=== PATIENT | female | born 1960 | race Caucasian/White ===

== ENCOUNTER 2018-11-24 15:31 | Emergency (ER) | payer OTHER ==
[~2018-11-24] VITALS: Ht 152.4 cm; Wt 63.5 kg
[~2018-11-24 15:31] MED LIST: CLON1TAB11 PO; DESV50TA PO; DIVA-53 PO; DOCU-153 PO; FURO40TA4 PO; HYDR25TA PO; LOPE1TAB4 PO; OMEP40CA5 PO; ONDA4TAB10 PO; PRAZ2CAP2 PO; PROP20TA PO
[2018-11-24] MEDS ORDERED: IV NORMAL SALINE 1000ML BAG 1,000 ML IV ONE ×2 (16:00→17:45)
[2018-11-24 16:44] LABS: BASO % 0 % (0-3); EOS # 0.1 x10^3/uL (0.0-0.7); EOS % 1 % (0-3); HEMATOCRIT 35.2 % (36.0-47.0); HEMOGLOBIN 11.3 g/dL (12.0-15.5); LYMPH # 1.8 x10^3/uL (1.0-4.8); LYMPH % 24 % (24-48); MEAN CORPUSCULAR HEMOGLOBIN 28 pg (25-35); MEAN CORPUSCULAR HGB CONC 32 g/dL (31-37); MEAN CORPUSCULAR VOLUME 88 fL (79-100); MONO # 0.6 x10^3/uL (0.0-1.1); MONO % 8 % (0-9); NEUT # 5.2 x10^3uL (1.8-7.7); NEUT % 67 % (31-73); PLATELET COUNT 251 x10^3/uL (140-400); WHITE BLOOD COUNT 7.7 x10^3/uL (4.0-11.0)
[2018-11-24 17:04] LABS: CALCIUM 9.7 mg/dL (8.5-10.1); CREATININE 1.3 mg/dL (0.6-1.0); GFR 41.9; POTASSIUM 3.2 mmol/L (3.5-5.1)
[2018-11-24 17:11] LABS: VAL ACID 4 mcg/mL (50-100)
[2018-11-24 17:16] LABS: ALBUMIN 3.6 g/dL (3.4-5.0); MAGNESIUM 2.1 mg/dL (1.8-2.4); TOTAL BILIRUBIN 0.1 mg/dL (0.2-1.0); TOTAL PROTEIN 7.3 g/dL (6.4-8.2)
[2018-11-24 17:42] LABS: BILIRUBIN,URINE NEGATIVE (NEG); CLARITY,URINE CLEAR; COLOR,URINE YELLOW; NITRITE,URINE NEGATIVE (NEG); PROTEIN,URINE NEGATIVE (NEG-TRACE); UROBILINOGEN,URINE 0.2 mg/dL (0.2 mg/dL)
[2018-11-24 17:48] LABS: BACTERIA,URINE 0 /HPF (0-FEW); RBC,URINE 0 /HPF (0-2); SQUAMOUS EPITHELIAL CELL,UR FEW /LPF; WBC,URINE 0 /HPF (0-4)
[2018-11-24 17:49] LABS: BARBITURATES NEG (NEG); BENZODIAZEPINES NEG (NEG); CANNABINOIDS POS (NEG); COCAINE NEG (NEG); METHADONE NEG (NEG); OPIATES NEG (NEG); PHENCYCLIDINE NEG (NEG)
[2018-11-24 17:50] LABS: AMPHETAMINE/METHAMPHETAMINE NEG (NEG)
[2018-11-24 20:04] VITALS: BP 154/88
--- NOTE | 2018-11-24 20:18 | PHYS DOC ---
Past Medical History Past Medical History: Bipolar, Depression, Hypertension, Other Additional Past Medical Histor: TREMORS, EPILEPSY Past Surgical History: , Hip Replacement, Hysterectomy Additional Information: 1 PK/DAY Alcohol Use: Heavy Drug Use: Marijuana Adult General Chief Complaint Chief Complaint: SEIZURE HPI HPI Patient is a 58 year old [f__sex] who presents with [] Review of Systems Review of Systems Constitutional: Denies fever or chills [] Eyes: Denies change in visual acuity, redness, or eye pain [] HENT: Denies nasal congestion or sore throat [] Respiratory: Denies cough or shortness of breath [] Cardiovascular: No additional information not addressed in HPI [] GI: Denies abdominal pain, nausea, vomiting, bloody stools or diarrhea [] : Denies dysuria or hematuria [] Musculoskeletal: Denies back pain or joint pain [] Integument: Denies rash or skin lesions [] Neurologic: Denies headache, focal weakness or sensory changes [] Endocrine: Denies polyuria or polydipsia [] All other systems were reviewed and found to be within normal limits, except as documented in this note. Current Medications Current Medications Current Medications Medications (Trade) Dose Ordered Sig/Carmen Start Time Stop Time Status Last Admin Dose Admin Sodium Chloride 1,000 ml @ 1,000 mls/hr 1X ONCE 11/24/18 17:45 11/24/18 18:44 DC Allergies Allergies Allergies Coded Allergies Type Severity Reaction Last Updated Verified ibuprofen Allergy Intermediate NAUSEA/VOMITING 06/15/14 Yes Physical Exam Physical Exam Constitutional: Well developed, well nourished, no acute distress, non-toxic appearance. [] HENT: Normocephalic, atraumatic, bilateral external ears normal, oropharynx moist, no oral exudates, nose normal. [] Eyes: PERRLA, EOMI, conjunctiva normal, no discharge. [] Neck: Normal range of motion, no tenderness, supple, no stridor. [] Cardiovascular:Heart rate regular rhythm, no murmur [] Lungs & Thorax: Bilateral breath sounds clear to auscultation [] Abdomen: Bowel sounds normal, soft, no tenderness, no masses, no pulsatile masses. [] Skin: Warm, dry, no erythema, no rash. [] Back: No tenderness, no CVA tenderness. [] Extremities: No tenderness, no cyanosis, no clubbing, ROM intact, no edema. [] Neurologic: Alert and oriented X 3, normal motor function, normal sensory function, no focal deficits noted. [] Psychologic: Affect normal, judgement normal, mood normal. [] Current Patient Data Vital Signs Vital Signs Date Time Temp Pulse Resp B/P (MAP) Pulse Ox O2 Delivery O2 Flow Rate FiO2 11/24/18 20:04 94 20 98 11/24/18 15:51 98.5 145/79 (101) Room Air 98.5 Lab Values Laboratory Tests Test 11/24/18 16:20 11/24/18 17:30 White Blood Count 7.7 x10^3/uL (4.0-11.0) Red Blood Count 4.00 x10^6/uL (3.50-5.40) Hemoglobin 11.3 g/dL (12.0-15.5) L Hematocrit 35.2 % (36.0-47.0) L Mean Corpuscular Volume 88 fL (79-100) Mean Corpuscular Hemoglobin 28 pg (25-35) Mean Corpuscular Hemoglobin Concent 32 g/dL (31-37) Red Cell Distribution Width 17.0 % (11.5-14.5) H Platelet Count 251 x10^3/uL (140-400) Neutrophils (%) (Auto) 67 % (31-73) Lymphocytes (%) (Auto) 24 % (24-48) Monocytes (%) (Auto) 8 % (0-9) Eosinophils (%) (Auto) 1 % (0-3) Basophils (%) (Auto) 0 % (0-3) Neutrophils # (Auto) 5.2 x10^3uL (1.8-7.7) Lymphocytes # (Auto) 1.8 x10^3/uL (1.0-4.8) Monocytes # (Auto) 0.6 x10^3/uL (0.0-1.1) Eosinophils # (Auto) 0.1 x10^3/uL (0.0-0.7) Basophils # (Auto) 0.0 x10^3/uL (0.0-0.2) Sodium Level 145 mmol/L (136-145) Potassium Level 3.2 mmol/L (3.5-5.1) L Chloride Level 106 mmol/L (98-107) Carbon Dioxide Level 20 mmol/L (21-32) L Anion Gap 19 (6-14) H Blood Urea Nitrogen 11 mg/dL (7-20) Creatinine 1.3 mg/dL (0.6-1.0) H Estimated GFR (Cockcroft-Gault) 41.9 BUN/Creatinine Ratio 8 (6-20) Glucose Level 89 mg/dL (70-99) Lactic Acid Level 6.3 mmol/L (0.4-2.0) *H Calcium Level 9.7 mg/dL (8.5-10.1) Magnesium Level 2.1 mg/dL (1.8-2.4) Total Bilirubin 0.1 mg/dL (0.2-1.0) L Aspartate Amino Transferase (AST) 22 U/L (15-37) Alanine Aminotransferase (ALT) 24 U/L (14-59) Alkaline Phosphatase 93 U/L (46-116) Creatine Kinase 34 U/L (26-192) Total Protein 7.3 g/dL (6.4-8.2) Albumin 3.6 g/dL (3.4-5.0) Albumin/Globulin Ratio 1.0 (1.0-1.7) Valproic Acid Level 4 mcg/mL (50-100) L Valproic Acid Last Dose Date Unk Valproic Acid Last Dose Time Unk Ethyl Alcohol Level 123 mg/dL (0-10) H Urine Collection Type Unknown Urine Color Yellow Urine Clarity Clear Urine pH 6.0 Urine Specific [place] 1.010 Urine Protein Negative mg/dL (NEG-TRACE) Urine Glucose (UA) Negative mg/dL (NEG) Urine Ketones (Stick) Negative mg/dL (NEG) Urine Blood Negative (NEG) Urine Nitrite Negative (NEG) Urine Bilirubin Negative (NEG) Urine Urobilinogen Dipstick 0.2 mg/dL (0.2 mg/dL) Urine Leukocyte Esterase Negative (NEG) Urine RBC 0 /HPF (0-2) Urine WBC 0 /HPF (0-4) Urine Squamous Epithelial Cells Few /LPF Urine Bacteria 0 /HPF (0-FEW) Urine Opiates Screen Neg (NEG) Urine Methadone Screen Neg (NEG) Urine Barbiturates Neg (NEG) Urine Phencyclidine Screen Neg (NEG) Urine Amphetamine/Methamphetamine Neg (NEG) Urine Benzodiazepines Screen Neg (NEG) Urine Cocaine Screen Neg (NEG) Urine Cannabinoids Screen Pos (NEG) Urine Ethyl Alcohol Pos (NEG) Laboratory Tests 11/24/18 16:20 Laboratory Tests 11/24/18 16:20 EKG EKG [] Radiology/Procedures Radiology/Procedures [] Course & Med Decision Making Course & Med Decision Making Pertinent Labs and Imaging studies reviewed. (See chart for details) [] Dragon Disclaimer Dragon Disclaimer This electronic medical record was generated, in whole or in part, using a voice recognition dictation system. Departure Departure Impression: Primary Impression: Alcohol intoxication Additional Impression: Seizure Disposition: 01 HOME, SELF-CARE Condition: STABLE Referrals: NO PCP (PCP) Patient Instructions: Alcohol Intoxication, Idup-ha-Dapw, Seizure, Adult, Easy- to-Read Additional Instructions: Your valproic acid level was too low. Please take your medications as prescribed. Problem Qualifiers Primary Impression: Alcohol intoxication Complication of substance-induced condition: uncomplicated Qualified Codes: F10.920 - Alcohol use, unspecified with intoxication, uncomplicated MANUEL NAPOLES DO Nov 24, 2018 20:18
== END 2018-11-24 20:26 | disposition home or self-care (01) ==
LOC: ER 15:31
DX: R56.9 Unspecified convulsions (principal); F10.920 Alcohol use, unspecified with intoxication, uncomplicated; F32.9 Major depressive disorder, single episode, unspecified; I10 Essential (primary) hypertension; F17.200 Nicotine dependence, unspecified, uncomplicated; Z90.710 Acquired absence of both cervix and uterus
CPT/HCPCS: 36415; 80053; 80164; 80307; 81001; 82550; 83605; 83735; 85025; 99283; G0480; J7030

== ENCOUNTER 2019-02-15 13:13 | Inpatient (IN) | payer OTHER ==
[~2019-02-15] VITALS: Ht 142.2 cm; Wt 62.7 kg
[2019-02-15 13:50] LABS: BASO # 0.1 x10^3/uL (0.0-0.2); BASO % 1 % (0-3); EOS # 0.1 x10^3/uL (0.0-0.7); EOS % 1 % (0-3); HEMATOCRIT 35.1 % (36.0-47.0); HEMOGLOBIN 10.9 g/dL (12.0-15.5); LYMPH # 2.3 x10^3/uL (1.0-4.8); LYMPH % 29 % (24-48); MEAN CORPUSCULAR HEMOGLOBIN 25 pg (25-35); MEAN CORPUSCULAR HGB CONC 31 g/dL (31-37); MEAN CORPUSCULAR VOLUME 82 fL (79-100); MONO # 0.6 x10^3/uL (0.0-1.1); MONO % 8 % (0-9); NEUT # 5.1 x10^3uL (1.8-7.7); NEUT % 62 % (31-73); PLATELET COUNT 326 x10^3/uL (140-400); RED BLOOD COUNT 4.29 x10^6/uL (3.50-5.40); RED CELL DISTRIBUTION WIDTH 18.6 % (11.5-14.5); WHITE BLOOD COUNT 8.1 x10^3/uL (4.0-11.0)
[2019-02-15 13:54] LABS: CALCIUM 9.5 mg/dL (8.5-10.1); CREATININE 1.1 mg/dL (0.6-1.0); GFR 50.8; POTASSIUM 4.2 mmol/L (3.5-5.1)
[2019-02-15 13:59] LABS: ALBUMIN/GLOBULIN RATIO 1.1 (1.0-1.7); TOTAL BILIRUBIN 0.2 mg/dL (0.2-1.0); TOTAL PROTEIN 7.8 g/dL (6.4-8.2)
--- NOTE | 2019-02-15 14:24 | RAD ---
Examination: CT HEAD WO CONTRAST History: DIZZINESS. POSSIBLE MOTION. H/O SEIZURES, BIPOLAR.
PREVIOUS Comparison/Correlation: 06/15/2014 CT head without contrast Findings: Axial images of the head were obtained without contrast. Ventricles are normal size. No intracranial hemorrhage, midline shift, or mass effect. Globes and optic nerves are unremarkable. Bony structures are unremarkable. Impression: No acute process. PQRS Compliance Statement: One or more of the following individualized dose reduction techniques were utilized for this examination: 1. Automated exposure control 2. Adjustment of the mA and/or kV according to patient size 3. Use of iterative reconstruction technique Electronically signed by: Rogerio Farmer MD (02/15/2019 2:21 PM) [facility]
[2019-02-15 16:37] LABS: BILIRUBIN,URINE NEGATIVE (NEG); CLARITY,URINE CLEAR; COLOR,URINE YELLOW; NITRITE,URINE NEGATIVE (NEG); PH,URINE 6.5; PROTEIN,URINE NEGATIVE (NEG-TRACE)
[2019-02-15 16:43] LABS: BARBITURATES NEG (NEG); BENZODIAZEPINES NEG (NEG); CANNABINOIDS POS (NEG); COCAINE NEG (NEG); METHADONE NEG (NEG); OPIATES NEG (NEG); PHENCYCLIDINE NEG (NEG)
[2019-02-15 16:44] LABS: AMPHETAMINE/METHAMPHETAMINE NEG (NEG)
[2019-02-15 16:58] LABS: BACTERIA,URINE 0 /HPF (0-FEW); RBC,URINE 0 /HPF (0-2); SQUAMOUS EPITHELIAL CELL,UR OCC /LPF; WBC,URINE 0 /HPF (0-4)
[2019-02-15] MEDS ORDERED: ONDANSETRON PF 4 MG/2 ML VIAL. IV PRN (17:15)
[2019-02-15] MEDS: IV NORMAL SALINE 1000ML BAG 1,000 ML IV SCH (17:15)
--- NOTE | 2019-02-15 17:16 | PDOC1 ---
History and Physical Date of Admission Date of Admission DATE: 02/15/19 TIME: 17:12 Identification/Chief Complaint Chief Complaint SEEN IN ER WITH tremor. She states that she has had tremors in the past, but never this severe that lasted this long. She states that she is unable to safely care for herself at home because her tremors are so severe that she is having trouble walking. While speaking with the patient the nurse asked the patient hold her arm still so that he could start an IV. The patient ceased having tremors to that extremity immediately and held the arm still no seizure activity noted, tremor seems to have psych component per my exam Past Medical History Past Medical History Past Medical History Past Medical History: Bipolar, Depression, Hypertension, Other Additional Past Medical Histor: TREMORS Past Surgical History: , Hip Replacement Alcohol Use: Heavy Drug Use: Marijuana family hx obesity Psych: Addictions, Bipolar Renal/: No pertinent hx Family History Family History: High Cholestrol, Hypertension Social History Smoke: No ALCOHOL: heavy Drugs: Marijuana Current Medications Current Medications Active Scripts Active Reported Imodium Multi-Symptom Rel Cplt (Loperamide Hcl/Simethicone) 1 Each Tablet 1 Each PO PRN Dok (Docusate Sodium) 100 Mg Capsule 100 Mg PO BID Pristiq Er (Desvenlafaxine Succinate) 50 Mg Tab.er.24h 50 Mg PO DAILY Omeprazole 40 Mg Capsule.dr 40 Mg PO DAILY Furosemide 40 Mg Tablet 40 Mg PO DAILY Zofran Odt (Ondansetron) 4 Mg Tab.rapdis 4 Mg PO BID Propranolol Hcl 20 Mg Tablet 20 Mg PO TID Clonazepam 1 Mg Tablet 1 Mg PO BID Divalproex Sodium 500 Mg Tablet.dr 500 Mg PO BID Prazosin Hcl 2 Mg Capsule 2 Mg PO DAILY Hydroxyzine Hcl 25 Mg Tablet 25 Mg PO QID Allergies Allergies: Coded Allergies: ibuprofen (Verified Allergy, Intermediate, NAUSEA/VOMITING, 06/15/14) ROS Review of System Review of Systems Review of Systems Constitutional: Denies fever or chills [] Eyes: Denies change in visual acuity, redness, or eye pain [] HENT: Denies nasal congestion or sore throat [] Respiratory: Denies cough or shortness of breath [] Cardiovascular: No additional information not addressed in HPI [] GI: Denies abdominal pain, nausea, vomiting, bloody stools or diarrhea [] : Denies dysuria or hematuria [] Musculoskeletal: See history of present illness Integument: Denies rash or skin lesions [] Neurologic: Denies headache, focal weakness or sensory changes [] Endocrine: Denies polyuria or polydipsia [] 14 pt systems were reviewed and found to be within normal limits, except as documented General: YES: Fatigue ALLERGY AND IMMUNOLOGY: No: Hives, Insect Bite Sensitivity, Itchy/Watery Eyes, Nasal Congestion, Post Nasal Drip, Seasonal Allergies, Other Hematological and Lymphatic: No: Bleeding Problems, Blood Clots, Blood Transfusions, Brusing, Night Sweats, Pallor, Swollen Lymph Nodes, Other ENDOCRINE: No: Breast Changes, Galactorrhea, Hair Pattern Changes, Hot Flashes , Malaise/lethargy, Mood Swings, Palpitations, Polydipsia/polyuria, Skin Changes , Temperature Intolerance, Unexpected Weight Changes, Other Musculoskeletal: Yes Gait Disturbance Neurological: Yes Gait Disturbance Physical Exam Physical Exam Physical Exam Physical Exam Constitutional: Well developed, well nourished, mild acute distress, non-toxic appearance. [] HENT: Normocephalic, atraumatic, bilateral external ears normal, oropharynx moist, no oral exudates, nose normal. [] Eyes: PERRLA, EOMI, conjunctiva normal, no discharge. [] Neck: Normal range of motion, no tenderness, supple, no stridor. [] Cardiovascular:Heart rate regular rhythm, no murmur [] Lungs & Thorax: Bilateral breath sounds clear to auscultation [] Abdomen: Bowel sounds normal, soft, no tenderness, no masses, no pulsatile masses. [] Skin: Warm, dry, no erythema, no rash. [] Back: No tenderness, no CVA tenderness. [] Extremities: No tenderness, no cyanosis, no clubbing, ROM intact, no edema. [] Neurologic: Alert and oriented X 3, normal sensory function, cranial nerves II through XII are grossly intact, unable to assess cerebellar function due to the patient's tremor activity Psychologic: Affect normal, judgement normal, mood normal. [] General: Alert, Oriented X3, Cooperative, mild distress HEENT: Atraumatic, PERRLA, Mucous membr. moist/pink Lungs: Clear to auscultation, Normal air movement Heart: RRR Abdomen: Normal bowel sounds, Soft Skin: No significant lesion Neuro: Normal speech, Cranial nerves 3-12 NL Vitals Vitals Vital Signs Date Time Temp Pulse Resp B/P (MAP) Pulse Ox O2 Delivery O2 Flow Rate FiO2 02/15/19 16:30 82 18 98 02/15/19 13:18 98.1 141/101 (114) Room Air 98.1 Labs Labs Laboratory Tests Test 02/15/19 13:35 02/15/19 16:26 White Blood Count 8.1 x10^3/uL (4.0-11.0) Red Blood Count 4.29 x10^6/uL (3.50-5.40) Hemoglobin 10.9 g/dL (12.0-15.5) Hematocrit 35.1 % (36.0-47.0) Mean Corpuscular Volume 82 fL (79-100) Mean Corpuscular Hemoglobin 25 pg (25-35) Mean Corpuscular Hemoglobin Concent 31 g/dL (31-37) Red Cell Distribution Width 18.6 % (11.5-14.5) Platelet Count 326 x10^3/uL (140-400) Neutrophils (%) (Auto) 62 % (31-73) Lymphocytes (%) (Auto) 29 % (24-48) Monocytes (%) (Auto) 8 % (0-9) Eosinophils (%) (Auto) 1 % (0-3) Basophils (%) (Auto) 1 % (0-3) Neutrophils # (Auto) 5.1 x10^3uL (1.8-7.7) Lymphocytes # (Auto) 2.3 x10^3/uL (1.0-4.8) Monocytes # (Auto) 0.6 x10^3/uL (0.0-1.1) Eosinophils # (Auto) 0.1 x10^3/uL (0.0-0.7) Basophils # (Auto) 0.1 x10^3/uL (0.0-0.2) Sodium Level 141 mmol/L (136-145) Potassium Level 4.2 mmol/L (3.5-5.1) Chloride Level 104 mmol/L (98-107) Carbon Dioxide Level 24 mmol/L (21-32) Anion Gap 13 (6-14) Blood Urea Nitrogen 8 mg/dL (7-20) Creatinine 1.1 mg/dL (0.6-1.0) Estimated GFR (Cockcroft-Gault) 50.8 BUN/Creatinine Ratio 7 (6-20) Glucose Level 130 mg/dL (70-99) Calcium Level 9.5 mg/dL (8.5-10.1) Total Bilirubin 0.2 mg/dL (0.2-1.0) Aspartate Amino Transf (AST/SGOT) 43 U/L (15-37) Alanine Aminotransferase (ALT/SGPT) 34 U/L (14-59) Alkaline Phosphatase 118 U/L (46-116) Total Protein 7.8 g/dL (6.4-8.2) Albumin 4.0 g/dL (3.4-5.0) Albumin/Globulin Ratio 1.1 (1.0-1.7) Ethyl Alcohol Level < 10 mg/dL (0-10) Urine Collection Type Unknown Urine Color Yellow Urine Clarity Clear Urine pH 6.5 Urine Specific [place] <=1.005 Urine Protein Negative mg/dL (NEG-TRACE) Urine Glucose (UA) Negative mg/dL (NEG) Urine Ketones (Stick) Negative mg/dL (NEG) Urine Blood Negative (NEG) Urine Nitrite Negative (NEG) Urine Bilirubin Negative (NEG) Urine Urobilinogen Dipstick 1.0 mg/dL (0.2 mg/dL) Urine Leukocyte Esterase Negative (NEG) Urine RBC 0 /HPF (0-2) Urine WBC 0 /HPF (0-4) Urine Squamous Epithelial Cells Occ /LPF Urine Bacteria 0 /HPF (0-FEW) Urine Opiates Screen Neg (NEG) Urine Methadone Screen Neg (NEG) Urine Barbiturates Neg (NEG) Urine Phencyclidine Screen Neg (NEG) Urine Amphetamine/Methamphetamine Neg (NEG) Urine Benzodiazepines Screen Neg (NEG) Urine Cocaine Screen Neg (NEG) Urine Cannabinoids Screen Pos (NEG) Urine Ethyl Alcohol Neg (NEG) Laboratory Tests Test 02/15/19 13:35 02/15/19 16:26 White Blood Count 8.1 x10^3/uL (4.0-11.0) Red Blood Count 4.29 x10^6/uL (3.50-5.40) Hemoglobin 10.9 g/dL (12.0-15.5) Hematocrit 35.1 % (36.0-47.0) Mean Corpuscular Volume 82 fL (79-100) Mean Corpuscular Hemoglobin 25 pg (25-35) Mean Corpuscular Hemoglobin Concent 31 g/dL (31-37) Red Cell Distribution Width 18.6 % (11.5-14.5) Platelet Count 326 x10^3/uL (140-400) Neutrophils (%) (Auto) 62 % (31-73) Lymphocytes (%) (Auto) 29 % (24-48) Monocytes (%) (Auto) 8 % (0-9) Eosinophils (%) (Auto) 1 % (0-3) Basophils (%) (Auto) 1 % (0-3) Neutrophils # (Auto) 5.1 x10^3uL (1.8-7.7) Lymphocytes # (Auto) 2.3 x10^3/uL (1.0-4.8) Monocytes # (Auto) 0.6 x10^3/uL (0.0-1.1) Eosinophils # (Auto) 0.1 x10^3/uL (0.0-0.7) Basophils # (Auto) 0.1 x10^3/uL (0.0-0.2) Sodium Level 141 mmol/L (136-145) Potassium Level 4.2 mmol/L (3.5-5.1) Chloride Level 104 mmol/L (98-107) Carbon Dioxide Level 24 mmol/L (21-32) Anion Gap 13 (6-14) Blood Urea Nitrogen 8 mg/dL (7-20) Creatinine 1.1 mg/dL (0.6-1.0) Estimated GFR (Cockcroft-Gault) 50.8 BUN/Creatinine Ratio 7 (6-20) Glucose Level 130 mg/dL (70-99) Calcium Level 9.5 mg/dL (8.5-10.1) Total Bilirubin 0.2 mg/dL (0.2-1.0) Aspartate Amino Transf (AST/SGOT) 43 U/L (15-37) Alanine Aminotransferase (ALT/SGPT) 34 U/L (14-59) Alkaline Phosphatase 118 U/L (46-116) Total Protein 7.8 g/dL (6.4-8.2) Albumin 4.0 g/dL (3.4-5.0) Albumin/Globulin Ratio 1.1 (1.0-1.7) Ethyl Alcohol Level < 10 mg/dL (0-10) Urine Collection Type Unknown Urine Color Yellow Urine Clarity Clear Urine pH 6.5 Urine Specific [place] <=1.005 Urine Protein Negative mg/dL (NEG-TRACE) Urine Glucose (UA) Negative mg/dL (NEG) Urine Ketones (Stick) Negative mg/dL (NEG) Urine Blood Negative (NEG) Urine Nitrite Negative (NEG) Urine Bilirubin Negative (NEG) Urine Urobilinogen Dipstick 1.0 mg/dL (0.2 mg/dL) Urine Leukocyte Esterase Negative (NEG) Urine RBC 0 /HPF (0-2) Urine WBC 0 /HPF (0-4) Urine Squamous Epithelial Cells Occ /LPF Urine Bacteria 0 /HPF (0-FEW) Urine Opiates Screen Neg (NEG) Urine Methadone Screen Neg (NEG) Urine Barbiturates Neg (NEG) Urine Phencyclidine Screen Neg (NEG) Urine Amphetamine/Methamphetamine Neg (NEG) Urine Benzodiazepines Screen Neg (NEG) Urine Cocaine Screen Neg (NEG) Urine Cannabinoids Screen Pos (NEG) Urine Ethyl Alcohol Neg (NEG) Images Images PATIENT: KATE MONTES ACCOUNT: [id number] : 1960 LOCATION: ER AGE: 58 SEX: F EXAM STATUS: PRE ER ORD. PHYSICIAN: RICKI ARCE APRN REASON: dizzy PROCEDURE: CT HEAD WO CONTRAST Examination: CT HEAD WO CONTRAST History: DIZZINESS. POSSIBLE MOTION. H/O SEIZURES, BIPOLAR.
PREVIOUS Comparison/Correlation: 06/15/2014 CT head without contrast Findings: Axial images of the head were obtained without contrast. Ventricles are normal size. No intracranial hemorrhage, midline shift, or mass effect. Globes and optic nerves are unremarkable. Bony structures are unremarkable. Impression: No acute process. VTE Prophylaxis Ordered VTE Prophylaxis Devices: Yes VTE Pharmacological Prophylaxi: Yes Assessment/Plan Assessment/Plan impression 1. acute gait instability 2. possible drug toxicity 3. marijuana abuse 4. bipolar disease 5. obesity 6. alcohol abuse, reportedly heavy plan admit hold home meds [employer] ct head tele neurology consult dvt prophylaxis neurochecks q 4 hrs alcohol withdrawal precautions 58 MIN exam pt exam, chart review > 50% of time spent exam , chart review, pt care coordination KENNETH WILKERSON MD Feb 15, 2019 17:16
[2019-02-15 19:30] VITALS: BP 146/80
[2019-02-15] MEDS ORDERED: GABA-689 PO (19:44)
[2019-02-15] MEDS ORDERED: FLUO20CA8 PO (19:44)
[2019-02-15] MEDS ORDERED: LAMO200T2 PO (19:44)
--- NOTE | 2019-02-15 19:44 | PHYS DOC ---
Past Medical History Past Medical History: Bipolar, Depression, Hypertension, Other Additional Past Medical Histor: TREMORS, EPILEPSY Past Surgical History: , Hip Replacement, Hysterectomy Alcohol Use: Heavy Drug Use: Marijuana Adult General Chief Complaint Chief Complaint: DIZZY/LIGHT HEADED HPI HPI Patient is a 58 year old female who presents with tremor. She states that she has had tremors in the past, but never this severe that lasted this long. She states that she is unable to safely care for herself at home because her tremors are so severe that she is having trouble walking. While speaking with the patient the nurse asked the patient hold her arm still so that he could start an IV. The patient ceased having tremors to that extremity immediately and held the arm still for him. When asked to do any activity she was able to control her tremors to complete that activity. It appears as if the patient is causing herself to shake. She does have a significant psychiatric history and states that she takes her medications as directed. Review of Systems Review of Systems Constitutional: Denies fever or chills [] Eyes: Denies change in visual acuity, redness, or eye pain [] HENT: Denies nasal congestion or sore throat [] Respiratory: Denies cough or shortness of breath [] Cardiovascular: No additional information not addressed in HPI [] GI: Denies abdominal pain, nausea, vomiting, bloody stools or diarrhea [] : Denies dysuria or hematuria [] Musculoskeletal: See history of present illness Integument: Denies rash or skin lesions [] Neurologic: Denies headache, focal weakness or sensory changes [] Endocrine: Denies polyuria or polydipsia [] All other systems were reviewed and found to be within normal limits, except as documented in this note. Current Medications Current Medications Current Medications Medications (Trade) Dose Ordered Sig/Carmen Start Time Stop Time Status Last Admin Dose Admin Ondansetron HCl (Zofran) 4 mg PRN Q8HRS PRN 02/15/19 17:15 02/16/19 17:14 Sodium Chloride 1,000 ml @ 125 mls/hr Q8H 02/15/19 17:15 02/16/19 17:14 02/15/19 17:15 125 MLS/HR Allergies Allergies Allergies Coded Allergies Type Severity Reaction Last Updated Verified ibuprofen Allergy Intermediate NAUSEA/VOMITING 06/15/14 Yes Physical Exam Physical Exam Constitutional: Well developed, well nourished, no acute distress, non-toxic appearance. [] HENT: Normocephalic, atraumatic, bilateral external ears normal, oropharynx moist, no oral exudates, nose normal. [] Eyes: PERRLA, EOMI, conjunctiva normal, no discharge. [] Neck: Normal range of motion, no tenderness, supple, no stridor. [] Cardiovascular:Heart rate regular rhythm, no murmur [] Lungs & Thorax: Bilateral breath sounds clear to auscultation [] Abdomen: Bowel sounds normal, soft, no tenderness, no masses, no pulsatile masses. [] Skin: Warm, dry, no erythema, no rash. [] Back: No tenderness, no CVA tenderness. [] Extremities: No tenderness, no cyanosis, no clubbing, ROM intact, no edema. [] Neurologic: Alert and oriented X 3, normal sensory function, cranial nerves II through XII are grossly intact, unable to assess cerebellar function due to the patient's tremor activity Psychologic: Affect normal, judgement normal, mood normal. [] Current Patient Data Vital Signs Vital Signs Date Time Temp Pulse Resp B/P (MAP) Pulse Ox O2 Delivery O2 Flow Rate FiO2 02/15/19 16:30 82 18 98 02/15/19 13:18 98.1 141/101 (114) Room Air 98.1 Lab Values Laboratory Tests Test 02/15/19 13:35 02/15/19 16:26 White Blood Count 8.1 x10^3/uL (4.0-11.0) Red Blood Count 4.29 x10^6/uL (3.50-5.40) Hemoglobin 10.9 g/dL (12.0-15.5) L Hematocrit 35.1 % (36.0-47.0) L Mean Corpuscular Volume 82 fL (79-100) Mean Corpuscular Hemoglobin 25 pg (25-35) Mean Corpuscular Hemoglobin Concent 31 g/dL (31-37) Red Cell Distribution Width 18.6 % (11.5-14.5) H Platelet Count 326 x10^3/uL (140-400) Neutrophils (%) (Auto) 62 % (31-73) Lymphocytes (%) (Auto) 29 % (24-48) Monocytes (%) (Auto) 8 % (0-9) Eosinophils (%) (Auto) 1 % (0-3) Basophils (%) (Auto) 1 % (0-3) Neutrophils # (Auto) 5.1 x10^3uL (1.8-7.7) Lymphocytes # (Auto) 2.3 x10^3/uL (1.0-4.8) Monocytes # (Auto) 0.6 x10^3/uL (0.0-1.1) Eosinophils # (Auto) 0.1 x10^3/uL (0.0-0.7) Basophils # (Auto) 0.1 x10^3/uL (0.0-0.2) Sodium Level 141 mmol/L (136-145) Potassium Level 4.2 mmol/L (3.5-5.1) Chloride Level 104 mmol/L (98-107) Carbon Dioxide Level 24 mmol/L (21-32) Anion Gap 13 (6-14) Blood Urea Nitrogen 8 mg/dL (7-20) Creatinine 1.1 mg/dL (0.6-1.0) H Estimated GFR (Cockcroft-Gault) 50.8 BUN/Creatinine Ratio 7 (6-20) Glucose Level 130 mg/dL (70-99) H Calcium Level 9.5 mg/dL (8.5-10.1) Total Bilirubin 0.2 mg/dL (0.2-1.0) Aspartate Amino Transferase (AST) 43 U/L (15-37) H Alanine Aminotransferase (ALT) 34 U/L (14-59) Alkaline Phosphatase 118 U/L (46-116) H Total Protein 7.8 g/dL (6.4-8.2) Albumin 4.0 g/dL (3.4-5.0) Albumin/Globulin Ratio 1.1 (1.0-1.7) Ethyl Alcohol Level < 10 mg/dL (0-10) Urine Collection Type Unknown Urine Color Yellow Urine Clarity Clear Urine pH 6.5 Urine Specific [place] <=1.005 Urine Protein Negative mg/dL (NEG-TRACE) Urine Glucose (UA) Negative mg/dL (NEG) Urine Ketones (Stick) Negative mg/dL (NEG) Urine Blood Negative (NEG) Urine Nitrite Negative (NEG) Urine Bilirubin Negative (NEG) Urine Urobilinogen Dipstick 1.0 mg/dL (0.2 mg/dL) Urine Leukocyte Esterase Negative (NEG) Urine RBC 0 /HPF (0-2) Urine WBC 0 /HPF (0-4) Urine Squamous Epithelial Cells Occ /LPF Urine Bacteria 0 /HPF (0-FEW) Urine Opiates Screen Neg (NEG) Urine Methadone Screen Neg (NEG) Urine Barbiturates Neg (NEG) Urine Phencyclidine Screen Neg (NEG) Urine Amphetamine/Methamphetamine Neg (NEG) Urine Benzodiazepines Screen Neg (NEG) Urine Cocaine Screen Neg (NEG) Urine Cannabinoids Screen Pos (NEG) Urine Ethyl Alcohol Neg (NEG) Laboratory Tests 02/15/19 13:35 Laboratory Tests 02/15/19 13:35 EKG EKG [] Radiology/Procedures Radiology/Procedures [] PATIENT: KATE MONTES ACCOUNT: [id number] : 1960 LOCATION: ER AGE: 58 SEX: F EXAM STATUS: PRE ER ORD. PHYSICIAN: RICKI ARCE APRN REASON: dizzy PROCEDURE: CT HEAD WO CONTRAST Examination: CT HEAD WO CONTRAST History: DIZZINESS. POSSIBLE MOTION. H/O SEIZURES, BIPOLAR.
PREVIOUS Comparison/Correlation: 06/15/2014 CT head without contrast Findings: Axial images of the head were obtained without contrast. Ventricles are normal size. No intracranial hemorrhage, midline shift, or mass effect. Globes and optic nerves are unremarkable. Bony structures are unremarkable. Impression: No acute process. PQRS Compliance Statement: One or more of the following individualized dose reduction techniques were utilized for this examination: 1. Automated exposure control 2. Adjustment of the mA and/or kV according to patient size 3. Use of iterative reconstruction technique Electronically signed by: Rogerio Linares MD (02/15/2019 2:21 PM) [facility] DICTATED and SIGNED BY: ROGERIO LINARES MD DATE: 02/15/19 1421 Course & Med Decision Making Course & Med Decision Making Pertinent Labs and Imaging studies reviewed. (See chart for details) []The patient is continuing to have tremors in the emergency department. She was a two person assist to go to the restroom. Given the fall risk she is being admitted the Dr. Valdez's service. A consult has been placed with neurology. Camille Disclaimer Camille Disclaimer This electronic medical record was generated, in whole or in part, using a voice recognition dictation system. Departure Departure Impression: Primary Impression: Risk for falls Additional Impression: Coarse tremors Disposition: ADMITTED INPATIENT Condition: STABLE Problem Qualifiers RICKI ARCE APRN Feb 15, 2019 19:44
[2019-02-15] MEDS ORDERED: ACETAMINOPHEN 325 MG TABLET. PO PRN (20:45)
[2019-02-15] MEDS: LORazepam 1 MG TABLET PO SCH (20:58)
[2019-02-15 21:10] LABS: DIRECT BILIRUBIN 0.1 mg/dL (0.0-0.2)
[2019-02-15 23:50] VITALS: BP 175/84
--- NOTE | 2019-02-16 00:52 | CONS ---
DATE OF CONSULTATION: 02/15/2019 REFERRING PHYSICIAN: Robert Valdez M.D. REASON FOR CONSULTATION: Tremor. HISTORY OF PRESENT ILLNESS: The patient is a very pleasant 58-year-old woman who has had tremor for some years. She seems to have spells where the tremor becomes worse. She has been concerned because the tremor has become so bad, is making it difficult for her to walk and she is at risk for falling. The tremor fluctuates in severity. Overriding the tremor is also her psychiatric condition, which is anxiety, depression and bipolar disorder. She is under a great deal of stress because she lives with her sister who has health issues. She worries about her sister and also providing care. She generally does the cooking and cleaning because her sister is more debilitated. Her sister will occasionally have episode of syncope due to her COPD. PAST MEDICAL HISTORY: 1. Essential tremor. 2. Bipolar disorder. 3. Depression. 4. Generalized anxiety disorder. 5. Hypertension. 6. . 7. Hip replacement. 8. Marijuana usage. 9. Tobacco abuse. ALLERGIES: IBUPROFEN. MEDICATIONS PRIOR TO ADMISSION: Clonazepam 1 mg twice per day, desvenlafaxine 50 mg, divalproex sodium 500 mg twice per day, docusate sodium 100 mg twice per day, fluoxetine 40 mg, gabapentin 400 mg 3 times per day, hydroxyzine 25 mg 4 times per day, lamotrigine 300 mg, loperamide/simethicone as needed, omeprazole 40 mg, Zofran ODT 4 mg twice per day, prazosin 2 mg and propranolol 20 mg 3 times per day. FAMILY HISTORY: Hyperlipidemia and hypertension. Her sister also has COPD. SOCIAL HISTORY: She lives with her sister. She does drink alcohol heavily. She does smoke tobacco a pack a day. She does smoke marijuana. REVIEW OF SYSTEMS: She does not complain of any headache. There has been no change of vision or hearing. She has been able to swallow. She does have shortness of breath. There has been no chest or abdominal pain. She does have bone and joint pain. There has been no fever or rash. Does not have gastrointestinal complaints. She does have some difficulty with urinary incontinence at night. She has been using disposable briefs. She does have ongoing psychiatric symptoms. She does not complain of easy bruising, bleeding or swelling. PHYSICAL EXAMINATION: VITAL SIGNS: The blood pressure was 146/80, pulse 71, respirations 18 and temperature 98.1 degrees axillary. Oximetry was 94% on room air. GENERAL: She was alert, awake and cooperative. Speech was fluent and clear. She had a good fund of recent and remote knowledge. Attention and concentration was intact. She appeared well groomed and well nourished. She was fully oriented. NEUROLOGICAL: Examination of the cranial nerves revealed visual phelps were full to confrontation. Extraocular movements were intact. The eyes were conjugate. Pursuit movements were smooth and saccadic eye movements were without dysmetria. Pupils were 4 mm and reactive. Funduscopic exam did not reveal papilledema, exudate or hemorrhage. Facial sensation was intact. Muscles of mastication and facial expression were powerful symmetrically. Hearing was intact to finger rub. The palate arched symmetrically and the tongue was midline with full range of motion. Sternocleidomastoid and trapezius were powerful. Muscle bulk and tone was normal. There was no spasticity or rigidity. The power was full and symmetric in the upper and lower extremities. She did have a tremor, which was irregular and would come and go, depending on her level of distraction. She did not have any weakness of arms or legs. Reflexes were 1/4 in the upper extremities, 2/4 at the knees, 1/4 at the left ankle and absent at the right ankle. Coordination testing with [id number], [id number]-bs-[id number], fine motor and rapid alternating movements was well performed. Sensory exam was intact to pain, light touch, proprioception, graphesthesia, cold thermal and vibration. There was no extinction to double simultaneous stimulation. Gait was of a normal base and fairly steady. Occasionally, she would rear to one side or the other. With balance support, she could walk on heels or toes. Romberg stance was negative. Auscultation of the carotid arteries did not reveal a bruit. Heart's rhythm was regular without a murmur. Peripheral pulses were symmetric in the hands, diminished in the feet. There was no edema or cyanosis. LABORATORY DATA: Review of laboratory data: CBC revealed normal white blood cell count and platelet count. Hemoglobin was low at 10.9 and hematocrit 35.1. Chemistries revealed normal electrolytes. Creatinine was elevated at 1.1. BUN was normal at 8. GFR calculated at 50.8. Glucose was elevated to 130. Liver enzymes are not elevated, except AST at 43 and alkaline phosphatase of 118. Total protein and albumin were normal and calcium was normal. Urine drug screen was positive for cannabinoids. Ethanol level was not detected. Urinalysis was negative. RADIOLOGICAL DATA: CT scan of the brain was performed without contrast. There was no acute intracranial process. IMPRESSION: The patient is a pleasant 58-year-old woman with essential tremor. Much of the tremor is just her anxiety. When distracted and talking, she really does not have resting or active tremor. She does not have cogwheel rigidity or bradykinesia, so there is no evidence of Parkinson's disease. She is on 2 medicines, which can augment tremor, which include Depakote and her metered dose inhaler, which sounds like albuterol. RECOMMENDATIONS: She needs to continue to work with her psychiatrist to control her anxiety, bipolar disorder and depression. If possible, I would recommend trying to get off Depakote as it can contribute a tremor. If she does not need to use her inhaler very much, I would try to avoid it. We discussed techniques of relaxation as this could also help reduce the tremor. She may want to work with a counselor to try to learn better techniques of relaxation. She needs to discontinue smoking. She needs to discontinue alcohol. She also needs to discontinue marijuana usage. I appreciate being involved in the care. NICOLE TIERNEY MD DR: SHASTA/dean JOB#: [id number] / [id number]
[2019-02-16] MEDS: LORazepam 1 MG TABLET PO SCH ×4 (02:25→18:06)
[2019-02-16] MEDS: IV NORMAL SALINE 1000ML BAG 1,000 ML IV SCH ×2 (02:25→09:15)
[2019-02-16 03:42] VITALS: BP 161/70
[2019-02-16 07:18] VITALS: BP 152/76
--- NOTE | 2019-02-16 07:46 | EKG ---
[facility] [address] [place] [address] Test Date: 2019-02-15 Test Time: 14:24:06 Pat Name: KATE MONTES Department: Room: 673 1 Gender: F Spa Director: : 1960 Requested By: RICKI ARCE Order Number: [id number] Reading MD: Shaw Michelle MD Measurements Intervals [place] Rate: 95 P: -3 MN: 126 QRS: 28 QRSD: 72 T: 15 QT: 354 QTc: 448 Interpretive Statements SINUS RHYTHM NON-SPECIFIC ST/T CHANGES Electronically Signed On 02-16-2019 10:55:28 CDT by Shaw Michelle MD
[2019-02-16] MEDS: MULTIVITAMIN with MINERAL TABLET. PO SCH (08:48)
[2019-02-16] MEDS: THIAMINE 100 MG TABLET. PO SCH (08:48)
[2019-02-16] MEDS: FOLIC ACID 1 MG TABLET. PO SCH (08:48)
[2019-02-16] MEDS: MULTIVIT INFUSN,ADULT 4,VIT K 10 ML, THIAMINE INJ 100 MG, FOLIC ACID INJ 1 MG in IV NOR... IV SCH (08:50)
[2019-02-16] MEDS: DESVENLAFAXINE 25 MG TAB.ER.24H PO SCH (10:13)
[2019-02-16] MEDS: DIVALPROEX DELAYED RELEASE 500 MG TABLET.DR. PO SCH ×2 (10:13→21:41)
[2019-02-16] MEDS: PRAZOSIN 1 MG CAPSULE. PO SCH (10:14)
[2019-02-16] MEDS: lamoTRIgine 100 MG TABLET. PO SCH (10:14)
[2019-02-16] MEDS: hydrOXYzine PAMOATE 25 MG CAPSULE PO SCH ×4 (10:15→21:42)
[2019-02-16] MEDS: PANTOPRAZOLE 40 MG TABLET.DR. PO SCH (10:15)
[2019-02-16] MEDS: FLUoxetine HCL 20 MG CAPSULE PO SCH (10:15)
[2019-02-16] MEDS: PROPRANOLOL 10 MG TABLET. PO SCH ×3 (10:15→21:00)
[2019-02-16] MEDS: GABAPENTIN 400 MG CAPSULE. PO SCH ×3 (10:16→21:42)
[2019-02-16] MEDS: ONDANSETRON ODT 4 MG TAB.RAPDIS. PO SCH ×2 (10:16→21:41)
[2019-02-16] MEDS: DOCUSATE SODIUM 100 MG CAPSULE. PO SCH ×2 (10:23→21:00)
[2019-02-16] MEDS: clonazePAM 1 MG TABLET PO SCH ×2 (10:23→18:06)
[2019-02-16] MEDS: FUROSEMIDE 40 MG TABLET. PO SCH (10:24)
[2019-02-16 10:58] VITALS: BP 173/94
--- NOTE | 2019-02-16 11:47 | NUR ---
SW following pt for anticipated dc needs. Chart reviewed. Pt is home from spouse. No SW needs noted at this time. Pt is discharging home with self-care.
--- NOTE | 2019-02-16 13:12 | PDOC3 ---
Discharge Summary Visit Information Date of Admission: Feb 15, 2019 Date of Discharge: Feb 16, 2019 Admitting Diagnosis Comment: Tremors Polypharmacy 1. acute gait instability 2. possible drug toxicity 3. marijuana abuse 4. bipolar disease 5. obesity 6. alcohol abuse, reportedly heavy Final Diagnosis Problems Medical Problems: (1) Coarse tremors Status: Acute (2) Coarse tremors Status: Acute (3) Risk for falls Status: Acute (4) Risk for falls Status: Acute Brief Hospital Course Allergies Allergies Coded Allergies Type Severity Reaction Last Updated Verified ibuprofen Allergy Intermediate NAUSEA/VOMITING 06/15/14 Yes Vital Signs Vital Signs Date Time Temp Pulse Resp B/P (MAP) Pulse Ox O2 Delivery O2 Flow Rate FiO2 02/16/19 10:58 97.8 81 20 173/94 (120) 97 Room Air 97.8 Lab Results Laboratory Tests Test 02/15/19 13:35 02/15/19 16:26 02/16/19 12:00 White Blood Count 8.1 x10^3/uL (4.0-11.0) Red Blood Count 4.29 x10^6/uL (3.50-5.40) Hemoglobin 10.9 g/dL (12.0-15.5) Hematocrit 35.1 % (36.0-47.0) Mean Corpuscular Volume 82 fL (79-100) Mean Corpuscular Hemoglobin 25 pg (25-35) Mean Corpuscular Hemoglobin Concent 31 g/dL (31-37) Red Cell Distribution Width 18.6 % (11.5-14.5) Platelet Count 326 x10^3/uL (140-400) Neutrophils (%) (Auto) 62 % (31-73) Lymphocytes (%) (Auto) 29 % (24-48) Monocytes (%) (Auto) 8 % (0-9) Eosinophils (%) (Auto) 1 % (0-3) Basophils (%) (Auto) 1 % (0-3) Neutrophils # (Auto) 5.1 x10^3uL (1.8-7.7) Lymphocytes # (Auto) 2.3 x10^3/uL (1.0-4.8) Monocytes # (Auto) 0.6 x10^3/uL (0.0-1.1) Eosinophils # (Auto) 0.1 x10^3/uL (0.0-0.7) Basophils # (Auto) 0.1 x10^3/uL (0.0-0.2) Sodium Level 141 mmol/L (136-145) Potassium Level 4.2 mmol/L (3.5-5.1) Chloride Level 104 mmol/L (98-107) Carbon Dioxide Level 24 mmol/L (21-32) Anion Gap 13 (6-14) Blood Urea Nitrogen 8 mg/dL (7-20) Creatinine 1.1 mg/dL (0.6-1.0) Estimated GFR (Cockcroft-Gault) 50.8 BUN/Creatinine Ratio 7 (6-20) Glucose Level 130 mg/dL (70-99) Calcium Level 9.5 mg/dL (8.5-10.1) Total Bilirubin 0.2 mg/dL (0.2-1.0) Direct Bilirubin 0.1 mg/dL (0.0-0.2) Aspartate Amino Transf (AST/SGOT) 43 U/L (15-37) Alanine Aminotransferase (ALT/SGPT) 34 U/L (14-59) Alkaline Phosphatase 118 U/L (46-116) Total Protein 7.8 g/dL (6.4-8.2) Albumin 4.0 g/dL (3.4-5.0) Albumin/Globulin Ratio 1.1 (1.0-1.7) Ethyl Alcohol Level < 10 mg/dL (0-10) Urine Collection Type Unknown Urine Color Yellow Urine Clarity Clear Urine pH 6.5 Urine Specific [place] <=1.005 Urine Protein Negative mg/dL (NEG-TRACE) Urine Glucose (UA) Negative mg/dL (NEG) Urine Ketones (Stick) Negative mg/dL (NEG) Urine Blood Negative (NEG) Urine Nitrite Negative (NEG) Urine Bilirubin Negative (NEG) Urine Urobilinogen Dipstick 1.0 mg/dL (0.2 mg/dL) Urine Leukocyte Esterase Negative (NEG) Urine RBC 0 /HPF (0-2) Urine WBC 0 /HPF (0-4) Urine Squamous Epithelial Cells Occ /LPF Urine Bacteria 0 /HPF (0-FEW) Urine Opiates Screen Neg (NEG) Urine Methadone Screen Neg (NEG) Urine Barbiturates Neg (NEG) Urine Phencyclidine Screen Neg (NEG) Urine Amphetamine/Methamphetamine Neg (NEG) Urine Benzodiazepines Screen Neg (NEG) Urine Cocaine Screen Neg (NEG) Urine Cannabinoids Screen Pos (NEG) Urine Ethyl Alcohol Neg (NEG) Vitamin B12 Level 730 pg/mL (247-911) Laboratory Tests Test 02/15/19 13:35 02/15/19 16:26 02/16/19 12:00 White Blood Count 8.1 x10^3/uL (4.0-11.0) Red Blood Count 4.29 x10^6/uL (3.50-5.40) Hemoglobin 10.9 g/dL (12.0-15.5) Hematocrit 35.1 % (36.0-47.0) Mean Corpuscular Volume 82 fL (79-100) Mean Corpuscular Hemoglobin 25 pg (25-35) Mean Corpuscular Hemoglobin Concent 31 g/dL (31-37) Red Cell Distribution Width 18.6 % (11.5-14.5) Platelet Count 326 x10^3/uL (140-400) Neutrophils (%) (Auto) 62 % (31-73) Lymphocytes (%) (Auto) 29 % (24-48) Monocytes (%) (Auto) 8 % (0-9) Eosinophils (%) (Auto) 1 % (0-3) Basophils (%) (Auto) 1 % (0-3) Neutrophils # (Auto) 5.1 x10^3uL (1.8-7.7) Lymphocytes # (Auto) 2.3 x10^3/uL (1.0-4.8) Monocytes # (Auto) 0.6 x10^3/uL (0.0-1.1) Eosinophils # (Auto) 0.1 x10^3/uL (0.0-0.7) Basophils # (Auto) 0.1 x10^3/uL (0.0-0.2) Sodium Level 141 mmol/L (136-145) Potassium Level 4.2 mmol/L (3.5-5.1) Chloride Level 104 mmol/L (98-107) Carbon Dioxide Level 24 mmol/L (21-32) Anion Gap 13 (6-14) Blood Urea Nitrogen 8 mg/dL (7-20) Creatinine 1.1 mg/dL (0.6-1.0) Estimated GFR (Cockcroft-Gault) 50.8 BUN/Creatinine Ratio 7 (6-20) Glucose Level 130 mg/dL (70-99) Calcium Level 9.5 mg/dL (8.5-10.1) Total Bilirubin 0.2 mg/dL (0.2-1.0) Direct Bilirubin 0.1 mg/dL (0.0-0.2) Aspartate Amino Transf (AST/SGOT) 43 U/L (15-37) Alanine Aminotransferase (ALT/SGPT) 34 U/L (14-59) Alkaline Phosphatase 118 U/L (46-116) Total Protein 7.8 g/dL (6.4-8.2) Albumin 4.0 g/dL (3.4-5.0) Albumin/Globulin Ratio 1.1 (1.0-1.7) Ethyl Alcohol Level < 10 mg/dL (0-10) Urine Collection Type Unknown Urine Color Yellow Urine Clarity Clear Urine pH 6.5 Urine Specific [place] <=1.005 Urine Protein Negative mg/dL (NEG-TRACE) Urine Glucose (UA) Negative mg/dL (NEG) Urine Ketones (Stick) Negative mg/dL (NEG) Urine Blood Negative (NEG) Urine Nitrite Negative (NEG) Urine Bilirubin Negative (NEG) Urine Urobilinogen Dipstick 1.0 mg/dL (0.2 mg/dL) Urine Leukocyte Esterase Negative (NEG) Urine RBC 0 /HPF (0-2) Urine WBC 0 /HPF (0-4) Urine Squamous Epithelial Cells Occ /LPF Urine Bacteria 0 /HPF (0-FEW) Urine Opiates Screen Neg (NEG) Urine Methadone Screen Neg (NEG) Urine Barbiturates Neg (NEG) Urine Phencyclidine Screen Neg (NEG) Urine Amphetamine/Methamphetamine Neg (NEG) Urine Benzodiazepines Screen Neg (NEG) Urine Cocaine Screen Neg (NEG) Urine Cannabinoids Screen Pos (NEG) Urine Ethyl Alcohol Neg (NEG) Vitamin B12 Level 730 pg/mL (247-911) Brief Hospital Course Ms. Leblanc is a 58 old female who lives at home with family, came in because of tremors. Blood work negative. Neurology was consulted. Had nothing much to offer or maybe DC the nebulizer which she takes so frequently. Also might consider stopping Depakote as can also worsen tremors. Patient has a lot of medications polypharmacy including Prozac Lamictal Ativan etc. She sees a psychiatrist. We're awaiting for PT to assess. If safe for home been okay to go home with sister at bedside. Otherwise no new meds-that the last thing she needs. She knows the plan of care and agrees with current plan. Consults performed neurology Procedures performed none Time spent discharging less than 30 minutes Discharge Information Condition at Discharge: Improved, Stable Disposition/Orders: D/C to Home Scheduled Clonazepam (Clonazepam) 1 Mg Tablet, 1 MG PO BID, (Reported) Entered as Reported by: LESTER GALLAGHER on 06/15/141710 Last Action: Continued on 02/16/19946 by RAO ZURITA Desvenlafaxine Succinate (Pristiq Er) 50 Mg Tab.er.24h, 50 MG PO DAILY, ( Reported) Entered as Reported by: LESTER GALLAGHER on 06/15/141710 Last Action: Converted on 02/16/19946 by RAO ZURITA Divalproex Sodium (Divalproex Sodium) 500 Mg Tablet.dr, 500 MG PO BID, (Reported ) Entered as Reported by: LESTER GALLAGHER on 06/15/141710 Last Action: Converted on 02/16/19946 by RAO ZURITA Docusate Sodium (Dok) 100 Mg Capsule, 100 MG PO BID, (Reported) Entered as Reported by: LESTER GALLAGHER on 06/15/141710 Last Action: Continued on 02/16/19946 by RAO ZURITA Fluoxetine Hcl (Fluoxetine Hcl) 20 Mg Capsule, 1 CAP PO DAILY for depression, # 90 Ref 1 (Reported) Entered as Reported by: ANIKET PLASENCIA on 02/15/191943 Last Action: Continued on 02/16/19946 by RAO ZURITA Furosemide (Furosemide) 40 Mg Tablet, 40 MG PO DAILY, (Reported) Entered as Reported by: LESTER GALLAGHER on 06/15/141710 Last Action: Continued on 02/16/19946 by RAO ZURITA Gabapentin (Gabapentin ) 400 Mg Capsule, 400 MG PO TID for NEUROGENIC PAIN, ( Reported) Entered as Reported by: ANIKET PLASENCIA on 02/15/191943 Last Action: Continued on 02/16/19946 by RAO ZURITA Hydroxyzine Hcl (Hydroxyzine Hcl) 25 Mg Tablet, 25 MG PO QID, (Reported) Entered as Reported by: LESTER GALLAGHER on 06/15/141710 Last Action: Converted on 02/16/19946 by RAO ZURITA Lamotrigine (Lamotrigine) 200 Mg Tablet, 300 MG PO DAILY for bipoler, (Reported) Entered as Reported by: ANIKET PLASENCIA on 02/15/191943 Last Action: Converted on 02/16/19946 by RAO ZURITA Omeprazole (Omeprazole) 40 Mg Capsule.dr, 40 MG PO DAILY, (Reported) Entered as Reported by: LESTER GALLAGHER on 06/15/141710 Last Action: Converted on 02/16/19946 by RAO ZURITA Ondansetron (Zofran Odt) 4 Mg Tab.rapdis, 4 MG PO BID for NAUSEA/VOMITING, ( Reported) Entered as Reported by: LESTER GALLAGHER on 06/15/141710 Last Action: Continued on 02/16/19946 by RAO ZURITA Prazosin Hcl (Prazosin Hcl) 2 Mg Capsule, 2 MG PO DAILY, (Reported) Entered as Reported by: LESTER GALLAGHER on 06/15/141710 Last Action: Converted on 02/16/19946 by RAO ZURITA Propranolol Hcl (Propranolol Hcl) 20 Mg Tablet, 20 MG PO TID, (Reported) Entered as Reported by: LESTER GALLAGHER on 06/15/141710 Last Action: Converted on 02/16/19946 by RAO ZURITA Scheduled PRN Loperamide Hcl/Simethicone (Imodium Multi-Symptom Rel Cplt) 1 Each Tablet, 1 EACH PO for DIARRHEA, (Reported) Entered as Reported by: LESTER GALLAGHER on 06/15/141710 Last Action: Reviewed on 02/16/19946 by RAO ORTA MD Feb 16, 2019 13:12
[2019-02-16 14:51] VITALS: BP 102/57
--- NOTE | 2019-02-16 14:54 | PDOC ---
PROGRESS NOTES Assessment Assessment IMPRESSION: Alcohol intoxication, ETOH level 123. Metabolic/toxic encephalopathy. Tremor like movements, psychiatric and metabolic component. Falls, but no fall in 2019. Bipolar disorder. Depression. Anxiety. Cannabinoids positive. Seizure, per history. Obesity. RECOMMENDATIONS/PLAN: Continue home regimen Neurontin and Lamotrigine. Vit B1 100 mg daily. Taper off Depakote to decrease tremors. Her VPA level was 4, indicated not took it at home. EEG as out-patient. PAST MEDICAL AND SURGICAL HISTORY: Essential tremor? Bipolar disorder. Depression. Generalized anxiety disorder. Hypertension. . Hip replacement. Marijuana usage. obacco abuse. ALLERGIES: IBUPROFEN. FAMILY HISTORY: Hyperlipidemia and hypertension. Her sister also has COPD. SOCIAL HISTORY: She lives with her sister. She does drink alcohol heavily. She does smoke tobacco a pack a day. She does smoke marijuana. REVIEW OF SYSTEMS: She does not complain of any headache. There has been no change of vision or hearing. She has been able to swallow. She does have shortness of breath. There has been no chest or abdominal pain. She does have bone and joint pain. There has been no fever or rash. Does not have gastrointestinal complaints. She does have some difficulty with urinary incontinence at night. She has been using disposable briefs. She does have ongoing psychiatric symptoms. She does not complain of easy bruising, bleeding or swelling. Please see H&P MEDICATIONS: Refer to MAR PHYSICAL EXAMINATION: General appearance in no acute distress. HEENT: Normocephalic and nontraumatic. Eyes, nose, ears, and throat are unremarkable. Neck is supple. No lymphadenopathy. No Crepitus. Cardiovascular: S1, S2, regular rate and rhythm. Pulmonary: Clear to auscultation bilaterally. Abdomen: Bowel sounds are positive. Abdomen is soft, nontender, and nondistended. Extremities: No rash, lesions, or edema. No restriction of range of motion NEUROLOGICAL EXAMINATION: Awake. Oriented partially to time, place and person. PERRL. EOMI. CN: no focal findings. Muscle tone: within normal. Muscle strength: 5- DTR: 1+ Plantar reflex: Flexor response bilaterally Gait: not examined in bed. Sensory exam: no abnormal findings. No cerebellar signs elicited. F-T-N test fine. Objective Objective Vital Signs Date Time Temp Pulse Resp B/P (MAP) Pulse Ox O2 Delivery O2 Flow Rate FiO2 3/25/19 14:21 81 173/94 02/16/19 10:58 97.8 20 97 Room Air 97.8 Intake and Output 02/16/19 06:59 Intake Total 400 ml Balance 400 ml Intake Oral 400 ml # Voids 1 # Bowel Movements 1 Vitals Signs Vitals VS - Last 72 Hours, by Label Date Time Temp Pulse Resp B/P (MAP) Pulse Ox O2 Delivery O2 Flow Rate FiO2 02/16/19 14:21 81 173/94 02/16/19 10:58 97.8 81 20 173/94 (120) 97 Room Air 97.8 02/16/19 10:15 70 152/76 02/16/19 10:14 70 152/76 02/16/19 08:00 Room Air 02/16/19 07:18 97.6 70 19 152/76 (101) 97 Room Air 97.6 02/16/19 03:42 98.3 60 20 161/70 (100) 94 Room Air 98.3 02/15/19 23:50 98.4 64 20 175/84 (114) 96 Room Air 98.4 02/15/19 20:00 Room Air 02/15/19 19:30 98.1 71 18 146/80 (102) 94 Room Air 98.1 02/15/19 16:30 82 18 98 02/15/19 14:30 89 16 98 02/15/19 13:18 98.1 111 16 141/101 (114) 97 Room Air 98.1 Laboratory Laboratory Laboratory Tests Test 02/15/19 16:26 02/16/19 12:00 Urine Collection Type Unknown Urine Color Yellow Urine Clarity Clear Urine pH 6.5 Urine Specific Wright <=1.005 Urine Protein Negative mg/dL (NEG-TRACE) Urine Glucose (UA) Negative mg/dL (NEG) Urine Ketones (Stick) Negative mg/dL (NEG) Urine Blood Negative (NEG) Urine Nitrite Negative (NEG) Urine Bilirubin Negative (NEG) Urine Urobilinogen Dipstick 1.0 mg/dL (0.2 mg/dL) Urine Leukocyte Esterase Negative (NEG) Urine RBC 0 /HPF (0-2) Urine WBC 0 /HPF (0-4) Urine Squamous Epithelial Cells Occ /LPF Urine Bacteria 0 /HPF (0-FEW) Urine Opiates Screen Neg (NEG) Urine Methadone Screen Neg (NEG) Urine Barbiturates Neg (NEG) Urine Phencyclidine Screen Neg (NEG) Urine Amphetamine/Methamphetamine Neg (NEG) Urine Benzodiazepines Screen Neg (NEG) Urine Cocaine Screen Neg (NEG) Urine Cannabinoids Screen Pos (NEG) Urine Ethyl Alcohol Neg (NEG) Vitamin B12 Level 730 pg/mL (247-911) Thyroid Stimulating Hormone (TSH) 0.619 uIU/mL (0.358-3.74) Medication Medications Current Medications Acetaminophen (Tylenol) 650 mg PRN Q6HRS PRN PO fever/pain; Start 02/15/19 at 20:45 Clonazepam (KlonoPIN) 1 mg BID PO ; Start 02/16/19 at 10:30 Desvenlafaxine Succinate (Pristiq Er) 50 mg DAILY PO Last administered on at 10:13; Start 02/16/19 at 10:30 Divalproex Sodium (Depakote) 500 mg BID PO Last administered on 02/16/19at 10:13 ; Start 02/16/19 at 10:30 Docusate Sodium (Colace) 100 mg BID PO ; Start 02/16/19 at 10:30 Fluoxetine HCl (PROzac) 20 mg DAILY PO Last administered on 02/16/19 10:15; Start 02/16/19 at 10:30 Folic Acid (Folic Acid) 1 mg DAILY PO Last administered on 02/16/19at 08:48; Start 02/16/19 at 09:00 Furosemide (Lasix) 40 mg DAILY PO ; Start 02/16/19 at 10:30 Gabapentin (Neurontin) 400 mg TID PO Last administered on 02/16/19at 14:21; Start 02/16/19 at 10:30 Hydroxyzine Pamoate (Vistaril) 25 mg QID PO Last administered on 02/16/19 14: 22; Start 02/16/19 at 10:30 Influenza Virus Vaccine (Afluria Trivalent 1273-0037 Syringe) 0.5 ml ONCE ONCE VAX IM Last administered on 02/16/19 10:19; Start 02/16/19 at 09:00; Stop at 09:01; Status DC Lamotrigine (LaMICtal) 300 mg DAILY PO Last administered on 02/16/19at 10:14; Start 02/16/19 at 10:30 Lorazepam (Ativan) 2 mg Q6H PO Last administered on 02/16/19 08:48; Start at 20:45; Stop 02/17/19 at 02:46 Multivitamins (Thera M Plus) 1 tab DAILY PO Last administered on 02/16/19 08: 48; Start 02/16/19 at 09:00 Multivitamins 10 ml/Thiamine HCl 100 mg/Folic Acid 1 mg/Sodium Chloride 1,011.2 ml @ 100 mls/ hr DAILY IV Last administered on 02/16/19at 08:50; Start at 09:00; Stop 02/20/19 at 19:07 Ondansetron HCl (Zofran Odt) 4 mg BID PO Last administered on 02/16/19 10:16; Start 02/16/19 at 10:30 Ondansetron HCl (Zofran) 4 mg PRN Q8HRS PRN IV NAUSEA/VOMITING; Start 02/15/19 at 17:15; Stop 02/16/19 at 17:14 Pantoprazole Sodium (Protonix) 40 mg DAILYAC PO Last administered on 02/16/19 10:15; Start 02/16/19 at 10:30 Prazosin HCl (Minipress) 2 mg DAILY PO Last administered on 02/16/19at 10:14; Start 02/16/19 at 10:30 Propranolol HCl (Inderal) 20 mg TID PO Last administered on 02/16/19at 14:21; Start 02/16/19 at 10:30 Sodium Chloride 1,000 ml @ 125 mls/hr Q8H IV Last administered on 02/16/19at 02 :25; Start 02/15/19 at 17:15; Stop 02/16/19 at 17:14 Thiamine Mononitrate (Vitamin B-1) 100 mg DAILY PO Last administered on 08:48; Start 02/16/19 at 09:00; Stop 02/21/19 at 08:59 Comment Review of Relevant I have reviewed the following items clint (where applicable) has been applied. SEMAJ MIGUEL MD Feb 16, 2019 14:53
--- NOTE | 2019-02-16 16:20 | NUR ---
SW following pt. Pt recommends SNU. Pt is walking 300ft with walker and also had gait imbalance. Spoke with pt's sister at bedside regarding recommendation and the likelihood of insurance denying skilled as pt had walked 300ft and might be appropriate for home health services. Sister agreeable. Physician notified regarding HH orders. Pt able to dc home and SW can arrange HH in the am once orders are in. Discussed with RN.
--- NOTE | 2019-02-16 17:43 | SNU/HH DC ---
DISCHARGE WITH HOME HEALTH DISCHARGE INFORMATION: Discharge Date: Feb 16, 2019 Final Diagnosis: Problems Medical Problems: (1) Coarse tremors Status: Acute (2) Coarse tremors Status: Acute (3) Risk for falls Status: Acute (4) Risk for falls Status: Acute Condition on Discharge: Stable CODE STATUS: Code Status: Full HOME HEALTH: Face to Face: I certify this patient is under my care and that I, or a nurse practitioner or physician's recovery assistant working with me, had a face to face encounter that meets the physician face to face encounter requirements with this patient on []. Physical Therapy For: Evalulation/Treatment Occupational Therapy For: Evaluation/Treatment Home Health Aide For: Self-care SECURITY AND COMPLIANCE ANALYST For: Community Resources Pt Meets Homebound Status: Unsteady balance w/ amb, POST DISCHARGE ORDERS: DIET AFTER DISCHARGE: Cardiac CHECKS AFTER DISCHARGE: Checks after discharge: Check blood press - daily FOLLOW-UP: Follow up with: her PCP about her blood pressure-claims she's not taking any blood pressure CERTIFICATION STATEMENT: Certification Statement: Certification Statement: Based on the above finding, I certify that this patient is confined to the home and needs intermittent [facility] care, physical therapy and/or speech therapy, or continues to need occupational therapy.~ This patient is under my care, and I have initiated the establishment of the plan of care.~ This patient will be followed by myself or a community physician who will periodically review the plan of care. Home Meds Reported Medications Fluoxetine Hcl (FLUOXETINE HCL) 20 Mg Capsule, 1 CAP PO DAILY for depression, # 90 CAP 1 Refill 02/15/19 Lamotrigine (LAMOTRIGINE) 200 Mg Tablet, 300 MG PO DAILY for bipoler, TAB 02/15/19 Gabapentin (GABAPENTIN ) 400 Mg Capsule, 400 MG PO TID for NEUROGENIC PAIN, CAP 02/15/19 Loperamide Hcl/Simethicone (IMODIUM MULTI-SYMPTOM REL CPLT) 1 Each Tablet, 1 EACH PO PRN for DIARRHEA 06/15/14 Docusate Sodium (DOK) 100 Mg Capsule, 100 MG PO BID 06/15/14 Desvenlafaxine Succinate (PRISTIQ ER) 50 Mg Tab.er.24h, 50 MG PO DAILY 06/15/14 Omeprazole (OMEPRAZOLE) 40 Mg Capsule.dr, 40 MG PO DAILY, CAP 06/15/14 Furosemide (FUROSEMIDE) 40 Mg Tablet, 40 MG PO DAILY, TAB 06/15/14 Ondansetron (ZOFRAN ODT) 4 Mg Tab.rapdis, 4 MG PO BID for NAUSEA/VOMITING, TAB 06/15/14 Propranolol Hcl (PROPRANOLOL HCL) 20 Mg Tablet, 20 MG PO TID, TAB 06/15/14 Clonazepam (CLONAZEPAM) 1 Mg Tablet, 1 MG PO BID, TAB 06/15/14 Divalproex Sodium (DIVALPROEX SODIUM) 500 Mg Tablet.dr, 500 MG PO BID, TAB 06/15/14 Prazosin Hcl (PRAZOSIN HCL) 2 Mg Capsule, 2 MG PO DAILY 06/15/14 Hydroxyzine Hcl (HYDROXYZINE HCL) 25 Mg Tablet, 25 MG PO QID, TAB 06/15/14 RAO ZURITA MD Feb 16, 2019 17:43
[2019-02-16 19:56] VITALS: BP 97/60
[2019-02-16 23:21] VITALS: BP 93/48
[2019-02-17] MEDS: LORazepam 1 MG TABLET PO SCH (02:45)
[2019-02-17 03:45] VITALS: BP 93/43
[2019-02-17 07:15] VITALS: BP 116/47
[2019-02-17] MEDS: MULTIVIT INFUSN,ADULT 4,VIT K 10 ML, THIAMINE INJ 100 MG, FOLIC ACID INJ 1 MG in IV NOR... IV SCH (08:23)
[2019-02-17] MEDS: hydrOXYzine PAMOATE 25 MG CAPSULE PO SCH ×2 (08:28→14:06)
[2019-02-17] MEDS: THIAMINE 100 MG TABLET. PO SCH (08:28)
[2019-02-17] MEDS: PANTOPRAZOLE 40 MG TABLET.DR. PO SCH (08:28)
[2019-02-17] MEDS: DESVENLAFAXINE 25 MG TAB.ER.24H PO SCH (08:28)
[2019-02-17] MEDS: ONDANSETRON ODT 4 MG TAB.RAPDIS. PO SCH (08:28)
[2019-02-17] MEDS: lamoTRIgine 100 MG TABLET. PO SCH (08:28)
[2019-02-17] MEDS: FLUoxetine HCL 20 MG CAPSULE PO SCH (08:28)
[2019-02-17] MEDS: GABAPENTIN 400 MG CAPSULE. PO SCH ×2 (08:28→14:05)
[2019-02-17] MEDS: FOLIC ACID 1 MG TABLET. PO SCH (08:28)
[2019-02-17] MEDS: MULTIVITAMIN with MINERAL TABLET. PO SCH (08:29)
[2019-02-17] MEDS: DIVALPROEX DELAYED RELEASE 500 MG TABLET.DR. PO SCH (08:29)
[2019-02-17] MEDS: clonazePAM 1 MG TABLET PO SCH (08:32)
[2019-02-17] MEDS: DOCUSATE SODIUM 100 MG CAPSULE. PO SCH (08:32)
--- NOTE | 2019-02-17 08:38 | SNU/HH DC ---
DISCHARGE WITH HOME HEALTH DISCHARGE INFORMATION: Discharge Date: Feb 17, 2019 Final Diagnosis: Problems Medical Problems: (1) Coarse tremors Status: Acute (2) Coarse tremors Status: Acute (3) Risk for falls Status: Acute (4) Risk for falls Status: Acute Condition on Discharge: Stable CODE STATUS: Code Status: Full HOME HEALTH: Face to Face: I certify this patient is under my care and that I, or a nurse practitioner or physician's communications assistant working with me, had a face to face encounter that meets the physician face to face encounter requirements with this patient on []. Medical Complications: Falls Physical Therapy For: Evalulation/Treatment Occupational Therapy For: Evaluation/Treatment Speech Language Pathology For: Evaluation/Treatment Home Health Aide For: Self-care INFRASTRUCTURE DESIGN ENGINEER For: Community Resources Pt Meets Homebound Status: Poor coordination w/ amb. POST DISCHARGE ORDERS: DIET AFTER DISCHARGE: Cardiac CHECKS AFTER DISCHARGE: Checks after discharge: Check blood press - daily FOLLOW-UP: Follow up with: her PCP about her blood pressure-claims she's not taking any blood pressure Follow Up With: Psych re her psych issues CERTIFICATION STATEMENT: Certification Statement: Certification Statement: Based on the above finding, I certify that this patient is confined to the home and needs intermittent snf care, physical therapy and/or speech therapy, or continues to need occupational therapy.~ This patient is under my care, and I have initiated the establishment of the plan of care.~ This patient will be followed by myself or a community physician who will periodically review the plan of care. Home Meds Reported Medications Fluoxetine Hcl (FLUOXETINE HCL) 20 Mg Capsule, 1 CAP PO DAILY for depression, # 90 CAP 1 Refill 02/15/19 Lamotrigine (LAMOTRIGINE) 200 Mg Tablet, 300 MG PO DAILY for bipoler, TAB 02/15/19 Gabapentin (GABAPENTIN ) 400 Mg Capsule, 400 MG PO TID for NEUROGENIC PAIN, CAP 02/15/19 Loperamide Hcl/Simethicone (IMODIUM MULTI-SYMPTOM REL CPLT) 1 Each Tablet, 1 EACH PO PRN for DIARRHEA 06/15/14 Docusate Sodium (DOK) 100 Mg Capsule, 100 MG PO BID 06/15/14 Desvenlafaxine Succinate (PRISTIQ ER) 50 Mg Tab.er.24h, 50 MG PO DAILY 06/15/14 Omeprazole (OMEPRAZOLE) 40 Mg Capsule.dr, 40 MG PO DAILY, CAP 06/15/14 Furosemide (FUROSEMIDE) 40 Mg Tablet, 40 MG PO DAILY, TAB 06/15/14 Ondansetron (ZOFRAN ODT) 4 Mg Tab.rapdis, 4 MG PO BID for NAUSEA/VOMITING, TAB 06/15/14 Propranolol Hcl (PROPRANOLOL HCL) 20 Mg Tablet, 20 MG PO TID, TAB 06/15/14 Clonazepam (CLONAZEPAM) 1 Mg Tablet, 1 MG PO BID, TAB 06/15/14 Divalproex Sodium (DIVALPROEX SODIUM) 500 Mg Tablet.dr, 500 MG PO BID, TAB 06/15/14 Prazosin Hcl (PRAZOSIN HCL) 2 Mg Capsule, 2 MG PO DAILY 06/15/14 Hydroxyzine Hcl (HYDROXYZINE HCL) 25 Mg Tablet, 25 MG PO QID, TAB 06/15/14 RAO ZURITA MD Feb 17, 2019 08:38
[2019-02-17] MEDS: PROPRANOLOL 10 MG TABLET. PO SCH ×2 (09:21→13:51)
[2019-02-17] MEDS: FUROSEMIDE 40 MG TABLET. PO SCH (09:22)
[2019-02-17] MEDS: PRAZOSIN 1 MG CAPSULE. PO SCH (09:22)
[2019-02-17 10:57] VITALS: BP 110/56
--- NOTE | 2019-02-17 11:26 | NUR ---
SW following pt. Discussed with Physician regarding concerns about gait instability and pt might benefit from SNF. Spoke with pt's sister, Sarah via phone and discussed SNU and insurance coverage. Pt's sister agreeable with LAISHA sending referral to [facility] as long as insurance approves SNU. LAISHA phoned and faxed referral to [facility]. Pt acceptance and admission pending. LAISHA requested [facility] to submit for auth today if they clinically accept pt. Will continue to follow. Discussed with RN.
--- NOTE | 2019-02-17 12:04 | SNU/HH DC ---
DISCHARGE ORDERS DISCHARGE INFORMATION: DISCHARGE DATE: Feb 17, 2019 FINAL DIAGNOSIS Problems Medical Problems: (1) Coarse tremors Status: Acute (2) Coarse tremors Status: Acute (3) Risk for falls Status: Acute (4) Risk for falls Status: Acute CONDITION ON DISCHARGE: Stable CODE STATUS: Code Status: Full PENITENTIARY: SNF STAY <30 DAYS: Yes HOSPICE: HOSPICE: No HOSPICE EVAL & TREAT: No LTAC: ADMIT TO LTAC: No POST DISCHARGE ORDERS: ACTIVITY ORDERS: Resume previous activity WEIGHT BEARING STATUS: As tolerated DIET AFTER DISCHARGE: Cardiac CHECKS AFTER DISCHARGE: CHECKS AFTER DISCHARGE: Check blood press - daily FOLLOW-UP: PHYSICIAN FOLLOW-UP: her PCP about her blood pressure-claims she's not taking any blood pressure ADDITIONAL FOLLOW-UP: Psych re her psych issues TREATMENT/EQUIPMENT ORDERS: ADAPTIVE EQUIPMENT NEEDED: Front wheeled walker Physical Therapy For: Evalulation/Treatment Occupational Therapy For: Evaluation/Treatment Speech Language Pathology For: Evaluation/Treatment DISCHARGE MEDICATIONS: Home Meds Reported Medications Fluoxetine Hcl (FLUOXETINE HCL) 20 Mg Capsule, 1 CAP PO DAILY for depression, # 90 CAP 1 Refill 02/15/19 Lamotrigine (LAMOTRIGINE) 200 Mg Tablet, 300 MG PO DAILY for bipoler, TAB 02/15/19 Gabapentin (GABAPENTIN ) 400 Mg Capsule, 400 MG PO TID for NEUROGENIC PAIN, CAP 02/15/19 Loperamide Hcl/Simethicone (IMODIUM MULTI-SYMPTOM REL CPLT) 1 Each Tablet, 1 EACH PO PRN for DIARRHEA 06/15/14 Docusate Sodium (DOK) 100 Mg Capsule, 100 MG PO BID 06/15/14 Desvenlafaxine Succinate (PRISTIQ ER) 50 Mg Tab.er.24h, 50 MG PO DAILY 06/15/14 Omeprazole (OMEPRAZOLE) 40 Mg Capsule.dr, 40 MG PO DAILY, CAP 06/15/14 Furosemide (FUROSEMIDE) 40 Mg Tablet, 40 MG PO DAILY, TAB 06/15/14 Ondansetron (ZOFRAN ODT) 4 Mg Tab.rapdis, 4 MG PO BID for NAUSEA/VOMITING, TAB 06/15/14 Propranolol Hcl (PROPRANOLOL HCL) 20 Mg Tablet, 20 MG PO TID, TAB 06/15/14 Clonazepam (CLONAZEPAM) 1 Mg Tablet, 1 MG PO BID, TAB 06/15/14 Divalproex Sodium (DIVALPROEX SODIUM) 500 Mg Tablet.dr, 500 MG PO BID, TAB 06/15/14 Prazosin Hcl (PRAZOSIN HCL) 2 Mg Capsule, 2 MG PO DAILY 06/15/14 Hydroxyzine Hcl (HYDROXYZINE HCL) 25 Mg Tablet, 25 MG PO QID, TAB 06/15/14 RAO ZURITA MD Feb 17, 2019 12:04
--- NOTE | 2019-02-17 12:21 | PDOC ---
Provider Note Provider Note Patient requested discharge to be held last night because was unsteady in gait Patient worked with physical therapy today and still unsteady in terms of gait. Some concerns with home health discharge only- Will Try to see if we can arrange for SNU Discussed with social work RAO ZURITA MD Feb 17, 2019 12:21
--- NOTE | 2019-02-17 14:44 | NUR ---
Spoke with pt, states that she does not have a walker a home and she does not have a PCP. Will inform SW and Dr. Stevenson.
[2019-02-17 15:10] VITALS: BP 133/74
--- NOTE | 2019-02-17 15:51 | NUR ---
LAISHA following pt. [facility] declined to take pt stating pt is not a skilled candidate. [facility] also declined to take pt due to hx of psych, ETOH and Marijuana use. [facility] is out of network with pt's insurance. Discussed with pt at bedside and informed her she is more of a home health candidate. Pt does not have PCP and reported she was wanting to schedule appointment with Dr. Kj Robertson at [facility]. LAISHA phoned clinic and made a start of care appointment for 02/27/19 at 1440. Pt is provided with the appointment reminder. LAISHA faxed home health orders to [facility] , phone: [phone], fax; [phone]. LAISHA provided pt with a walker to take home and left a voice mail to pt's daughter requesting a call back. RN also reaching out to daughter to see if she is able to pick her up. Physician notified. Addendum: 02/17/19 at 1604 by TOSIN INTERIANO LAISHA spoke with pt's sister, Sarah via phone and discussed plan. Sarah reported she is on her way to picker box operator pt and has already talked with RN as well.
--- NOTE | 2019-02-17 16:19 | NUR ---
[facility] has accepted pt and will contact pt and sister to set up start of care service.
--- NOTE | 2019-02-17 16:37 | NUR ---
Discharge instructions given to pt, answered questions and concerns. Walker provided to pt by LAISHA. to contact pt to start services, pt notified of it. Pt dc home accompanied by sister Sarah.
== END 2019-02-17 16:40 | disposition home health service (06) | DRG 91 ==
LOC: ER 13:13 → 6 SOUTH 16:32 → ER 17:32 → 6 SOUTH 17:32
PROVIDERS: ADMIT Family Medicine; ATTEND Family Medicine
DX: G25.2 Other specified forms of tremor (principal); G92 Toxic encephalopathy; F10.129 Alcohol abuse with intoxication, unspecified; G40.909 Epilepsy, unspecified, not intractable, without status epilepticus; F12.10 Cannabis abuse, uncomplicated; E66.9 Obesity, unspecified; R26.9 Unspecified abnormalities of gait and mobility; F17.200 Nicotine dependence, unspecified, uncomplicated; F31.9 Bipolar disorder, unspecified; F41.1 Generalized anxiety disorder; I10 Essential (primary) hypertension; Y90.6 Blood alcohol level of 120-199 mg/100 ml; Z96.649 Presence of unspecified artificial hip joint; Z79.899 Other long term (current) drug therapy; Z82.5 Family history of asthma and other chronic lower respiratory diseases; Z82.49 Family history of ischemic heart disease and other diseases of the circulatory system; Z90.710 Acquired absence of both cervix and uterus; Z91.81 History of falling; Z88.8 Allergy status to other drugs, medicaments and biological substances; Z68.31 Body mass index [BMI] 31.0-31.9, adult
CPT/HCPCS: 36415; 70450; 80053; 80307; 81001; 82248; 82607; 84443; 85025; 90471; 90756; 93005; G0480; J7030; Q0162; Q0177; 97116; 99285-25; Q2035

== ENCOUNTER 2021-01-17 11:29 | Emergency (ER) | payer OTHER, MEDICAID ==
[~2021-01-17] VITALS: Ht 139.7 cm; Wt 64.0 kg
[~2021-01-17 11:29] MED LIST changes: -CLON1TAB11 PO; +CLONAZEPAM1 MG PO; +FLUO20CA20 PO; +GABA-689 PO; +LAMO200T6 PO; +OMEP40CA45 PO; -OMEP40CA5 PO
[2021-01-17] MEDS ORDERED: ONDANSETRON PF 4 MG/2 ML VIAL. IVP ONE (12:45)
[2021-01-17] MEDS ORDERED: IV NORMAL SALINE 1000ML BAG 1,000 ML IV SCH (12:45)
[2021-01-17] MEDS ORDERED: PANTOPRAZOLE IV PUSH 40 MG VIAL. IVP ONE (12:45)
[2021-01-17] MEDS ORDERED: KETOROLAC 15 MG/ML VIAL. IVP ONE (12:45)
--- NOTE | 2021-01-17 12:59 | RAD ---
XR CHEST 1V History: Reason: dizziness / Spl. Instructions: / History: Comparison: None. Findings: No consolidation or pleural effusion. Normal heart size. No pneumothorax. Impression: 1. No acute cardiopulmonary process. Electronically signed by: Greg Tyson DO (01/17/2021 12:57 PM) [id number]
[2021-01-17 13:23] LABS: BASO # 0.1 x10^3/uL (0.0-0.2); BASO % 1 % (0-3); EOS # 0.1 x10^3/uL (0.0-0.7); EOS % 1 % (0-3); HEMATOCRIT 35.1 % (36.0-47.0); HEMOGLOBIN 11.5 g/dL (12.0-15.5); LYMPH # 2.4 x10^3/uL (1.0-4.8); LYMPH % 23 % (24-48); MEAN CORPUSCULAR HEMOGLOBIN 27 pg (25-35); MEAN CORPUSCULAR HGB CONC 33 g/dL (31-37); MEAN CORPUSCULAR VOLUME 82 fL (79-100); MONO # 0.6 x10^3/uL (0.0-1.1); MONO % 6 % (0-9); NEUT # 7.1 x10^3/uL (1.8-7.7); NEUT % 70 % (31-73); PLATELET COUNT 354 x10^3/uL (140-400); RED BLOOD COUNT 4.27 x10^6/uL (3.50-5.40); RED CELL DISTRIBUTION WIDTH 17.6 % (11.5-14.5); WHITE BLOOD COUNT 10.3 x10^3/uL (4.0-11.0)
[2021-01-17 13:32] LABS: CALCIUM 9.5 mg/dL (8.5-10.1); CREATININE 0.8 mg/dL (0.6-1.0); GFR 72.9
[2021-01-17 13:37] LABS: ALBUMIN 3.6 g/dL (3.4-5.0); TOTAL BILIRUBIN 0.3 mg/dL (0.2-1.0); TOTAL PROTEIN 7.3 g/dL (6.4-8.2)
[2021-01-17 14:04] LABS: BILIRUBIN,URINE NEGATIVE (NEG); CLARITY,URINE CLOUDY; COLOR,URINE YELLOW; NITRITE,URINE POSITIVE (NEG); PH,URINE 6.5 (<5.0-8.0); PROTEIN,URINE NEGATIVE (NEG-TRACE); UROBILINOGEN,URINE 0.2 mg/dL (0.2 mg/dL)
--- NOTE | 2021-01-17 14:11 | EKG ---
[facility] [address] [place] [address] Test Date: 2021-01-17 Test Time: 12:59:32 Pat Name: KATE MONTES Department: Room: Gender: F Commercial Front Load Operator: : 1960 Requested By: KAVITHA REEVES Order Number: [id number] Reading MD: Measurements Intervals [place] Rate: 87 P: 42 FL: 124 QRS: -23 QRSD: 66 T: 24 QT: 358 QTc: 431 Interpretive Statements SINUS RHYTHM LEFT ATRIAL ABNORMALITY LEFTWARD AXIS ABNORMAL ECG RI6.02 No previous ECG available for comparison
[2021-01-17 14:25] LABS: BACTERIA,URINE MANY /HPF (0-FEW); RBC,URINE OCC /HPF (0-2)
[2021-01-17 14:59] VITALS: BP 157/77
[2021-01-17] MEDS ORDERED: LEVE500T56 PO (15:00)
[2021-01-17] MEDS ORDERED: NITR100C PO (15:00)
--- NOTE | 2021-01-17 15:00 | PHYS DOC ---
Past Medical History Past Medical History: Bipolar, Depression, Hypertension, Seizure, Other Additional Past Medical Histor: TREMORS, EPILEPSY Past Surgical History: , Hip Replacement, Hysterectomy Smoking Status: Current Every Day Smoker Alcohol Use: Heavy Drug Use: Marijuana Adult General Chief Complaint Chief Complaint: DIZZY/LIGHT HEADED HPI HPI Patient is a 60 year old female with a past medical history of hypertension and depression presents emergency department complaint of new onset of flulike illness. Patient states that over the last 3 days she has been having worsening sensation of generalized fatigue and body aches. This has been associated with mild sensation of headache and weakness. Patient states that she thinks that over the last few months has had for new onset of seizures but states that she has never been placed on medication for epilepsy. Denies any fevers, chills, chest pain or shortness of breath. Review of Systems Review of Systems Constitutional: Denies fever or chills [] Eyes: Denies change in visual acuity, redness, or eye pain [] HENT: Denies nasal congestion or sore throat [] Respiratory: Denies cough or shortness of breath [] Cardiovascular: No additional information not addressed in HPI [] GI: Denies abdominal pain, nausea, vomiting, bloody stools or diarrhea [] : Denies dysuria or hematuria [] Musculoskeletal: Denies back pain or joint pain [] Integument: Denies rash or skin lesions [] Neurologic: Denies headache, focal weakness or sensory changes [] Endocrine: Denies polyuria or polydipsia [] All other systems were reviewed and found to be within normal limits, except as documented in this note. Current Medications Current Medications Current Medications Medications (Trade) Dose Ordered Sig/Carmen Start Time Stop Time Status Last Admin Dose Admin Ketorolac Tromethamine (Toradol 15mg Vial) 15 mg 1X ONCE 01/17/21 12:45 01/17/21 12:46 DC 01/17/21 13:28 15 MG Ondansetron HCl (Zofran) 4 mg 1X ONCE 01/17/21 12:45 01/17/21 12:46 DC 01/17/21 13:29 4 MG Pantoprazole Sodium (PROTONIX VIAL for IV PUSH) 40 mg 1X ONCE 01/17/21 12:45 01/17/21 12:46 DC 01/17/21 13:29 40 MG Sodium Chloride 1,000 ml @ 1,000 mls/hr Q1H 01/17/21 12:45 01/17/21 13:44 DC 01/17/21 13:29 1,000 MLS/HR Allergies Allergies Allergies Coded Allergies Type Severity Reaction Last Updated Verified ibuprofen Allergy Intermediate NAUSEA/VOMITING 06/15/14 Yes Physical Exam Physical Exam Constitutional: Well developed, well nourished, no acute distress, non-toxic appearance. [] HENT: Normocephalic, atraumatic, bilateral external ears normal, oropharynx moist, no oral exudates, nose normal. [] Eyes: PERRLA, EOMI, conjunctiva normal, no discharge. [] Neck: Normal range of motion, no tenderness, supple, no stridor. [] Cardiovascular:Heart rate regular rhythm, no murmur [] Lungs & Thorax: Bilateral breath sounds clear to auscultation [] Abdomen: Bowel sounds normal, soft, no tenderness, no masses, no pulsatile masses. [] Skin: Warm, dry, no erythema, no rash. [] Back: No tenderness, no CVA tenderness. [] Extremities: No tenderness, no cyanosis, no clubbing, ROM intact, no edema. [] Neurologic: Alert and oriented X 3, normal motor function, normal sensory function, no focal deficits noted. [] Psychologic: Affect normal, judgement normal, mood normal. [] Current Patient Data Vital Signs Vital Signs Date Time Temp Pulse Resp B/P (MAP) Pulse Ox O2 Delivery O2 Flow Rate FiO2 01/17/21 12:55 98.2 116 20 136/96 (109) 97 Room Air 98.2 Lab Values Laboratory Tests Test 01/17/21 13:10 01/17/21 13:50 White Blood Count 10.3 x10^3/uL (4.0-11.0) Red Blood Count 4.27 x10^6/uL (3.50-5.40) Hemoglobin 11.5 g/dL (12.0-15.5) L Hematocrit 35.1 % (36.0-47.0) L Mean Corpuscular Volume 82 fL (79-100) Mean Corpuscular Hemoglobin 27 pg (25-35) Mean Corpuscular Hemoglobin Concent 33 g/dL (31-37) Red Cell Distribution Width 17.6 % (11.5-14.5) H Platelet Count 354 x10^3/uL (140-400) Neutrophils (%) (Auto) 70 % (31-73) Lymphocytes (%) (Auto) 23 % (24-48) L Monocytes (%) (Auto) 6 % (0-9) Eosinophils (%) (Auto) 1 % (0-3) Basophils (%) (Auto) 1 % (0-3) Neutrophils # (Auto) 7.1 x10^3/uL (1.8-7.7) Lymphocytes # (Auto) 2.4 x10^3/uL (1.0-4.8) Monocytes # (Auto) 0.6 x10^3/uL (0.0-1.1) Eosinophils # (Auto) 0.1 x10^3/uL (0.0-0.7) Basophils # (Auto) 0.1 x10^3/uL (0.0-0.2) Sodium Level 139 mmol/L (136-145) Potassium Level 4.0 mmol/L (3.5-5.1) Chloride Level 104 mmol/L (98-107) Carbon Dioxide Level 23 mmol/L (21-32) Anion Gap 12 (6-14) Blood Urea Nitrogen 13 mg/dL (7-20) Creatinine 0.8 mg/dL (0.6-1.0) Estimated GFR (Cockcroft-Gault) 72.9 BUN/Creatinine Ratio 16 (6-20) Glucose Level 89 mg/dL (70-99) Calcium Level 9.5 mg/dL (8.5-10.1) Total Bilirubin 0.3 mg/dL (0.2-1.0) Aspartate Amino Transferase (AST) 19 U/L (15-37) Alanine Aminotransferase (ALT) 25 U/L (14-59) Alkaline Phosphatase 106 U/L (46-116) Total Protein 7.3 g/dL (6.4-8.2) Albumin 3.6 g/dL (3.4-5.0) Albumin/Globulin Ratio 1.0 (1.0-1.7) Lipase 93 U/L (73-393) Urine Collection Type Unknown Urine Color Yellow Urine Clarity Cloudy Urine pH 6.5 (<5.0-8.0) Urine Specific [place] 1.010 (1.000-1.030) Urine Protein Negative mg/dL (NEG-TRACE) Urine Glucose (UA) Negative mg/dL (NEG) Urine Ketones (Stick) Negative mg/dL (NEG) Urine Blood Negative (NEG) Urine Nitrite Positive (NEG) Urine Bilirubin Negative (NEG) Urine Urobilinogen Dipstick 0.2 mg/dL (0.2 mg/dL) Urine Leukocyte Esterase Moderate (NEG) Urine RBC Occ /HPF (0-2) Urine WBC 11-20 /HPF (0-4) Urine Squamous Epithelial Cells Mod /LPF Urine Bacteria Many /HPF (0-FEW) Laboratory Tests 01/17/21 13:10 Laboratory Tests 01/17/21 13:10 EKG EKG [] Radiology/Procedures Radiology/Procedures [] Course & Med Decision Making Course & Med Decision Making Pertinent Labs and Imaging studies reviewed. (See chart for details) 60-year-old female presenting the emergency department with nonspecific symptoms consistent with acute viral syndrome. Labs were obtained without any significant abnormality however the urine does demonstrate some nitrates which could be consistent with a urinary tract infection. This time feel the patient be safely discharged home. Patient is a complaining of seizure so therefore I did have an extensive discussion with the patient regarding the importance of neurology follow-up. I feel like he can safely place the patient on Keppra, give her antibiotic and discharge home with neurology follow-up. Dragon Disclaimer Dragon Disclaimer This electronic medical record was generated, in whole or in part, using a voice recognition dictation system. Departure Departure Impression: Primary Impression: Viral syndrome Disposition: 01 DC HOME SELF CARE/HOMELESS Condition: GOOD Referrals: MIGUEL CHRISTIAN MD Patient Instructions: Seizure, Adult, Urinary Tract Infection, Viral Syndrome Additional Instructions: EMERGENCY DEPARTMENT GENERAL DISCHARGE INSTRUCTIONS Thank you for coming to [facility] Emergency Department (ED) today and trusting us with you care. We trust that you had a positive experience in our Emergency Department. If you wish to speak to the department management, you may call the Director at [phone]. YOUR FOLLOW UP INSTRUCTIONS ARE FOLLOWS: 1. Do you have a private Doctor? If you do not have a private doctor, please ask for a resource list of physicians or clinics that may be able to assist you with follow up care. 2. The Emergency Physicain has interpreted your x-rays. The X-Ray specialist will also review them. If there is a change in the findings, you will be notified in 48 hours when at all possible. 3. A lab test or culture has been done, your results will be reviewed and you will be notified if you need a change in treatment. ADDITIONAL INSTRUCTIONS AND INFORMATION: 1. Your care today has been supervised by a physician who is specially trained in emergency care. Many problems require more than one evaluation for a complete diagnosis and treatment. We recommend that you schedule your follow up appointment as recommended to ensure complete treatment of you illness or injury. If you are unable to obtain follow up care and continue to have a problem, or if your condition worsens, we recommend that you return to the ED. 2. We are not able to safely determine your condition over the phone nor are we able to give sound medical advice over the phone. For these safety reasons, if you call for medical advice we will ask you to come to the ED for further evaluation. 3. If you have any questions regarding these discharge instructions please call the ED at [phone]. SAFETY INFORMATION: In the interest of safety, wellness, and injury prevention; we encourage you to wear your sealbelt, if you smoke; quite smoking, and we encourage family to use a protective helmet for bicycling and other sporting events that present an increased risk for head injury. IF YOUR SYMPTOMS WORSEN OR NEW SYMPTOMS DEVELOP, OR YOU HAVE CONCERNS ABOUT YOUR CONDITION; OR IF YOUR CONDITION WORSENS WHILE YOU ARE WAITING FOR YOUR FOLLOW UP APPOINTMENT; EITHER CONTACT YOUR PRIMARY CARE DOCTOR, THE PHYSICIAN WHOSE NAME AND NUMBER YOU WERE GIVEN, OR RETURN TO THE ED IMMEDIATELY. Scripts Levetiracetam (KEPPRA) 500 Mg Tablet 1 TAB PO BID for 30 Days, #60 TAB 0 Refills Prov: KAVITHA REEVES MD 01/17/21 Nitrofurantoin Macrocrystal (NITROFURANTOIN) 100 Mg Capsule 1 CAP PO BID for 7 Days, #14 CAP Prov: KAVITHA REEVES MD 01/17/21 KAVITHA REEVES MD Jan 17, 2021 15:00
--- NOTE | 2021-01-18 16:54 | NUR ---
IP: Informed pt of negative COVID results. Pt verbalized understanding.
== END 2021-01-17 15:46 | disposition home or self-care (01) ==
LOC: ER 11:29
DX: B34.9 Viral infection, unspecified (principal); Z20.822 Contact with and (suspected) exposure to COVID-19; R51.9 Headache, unspecified; R20.2 Paresthesia of skin; R53.83 Other fatigue; I10 Essential (primary) hypertension; F32.9 Major depressive disorder, single episode, unspecified; F17.200 Nicotine dependence, unspecified, uncomplicated; F12.90 Cannabis use, unspecified, uncomplicated; F10.10 Alcohol abuse, uncomplicated; Z98.890 Other specified postprocedural states; Z90.710 Acquired absence of both cervix and uterus
CPT/HCPCS: 36415; 71045; 80053; 81001; 83690; 85025; 93005; 96361; 96374; 96375; 99285; C9113; C9803; J1885; J2405; J7030; U0003

== ENCOUNTER 2021-10-26 13:02 | Emergency (ER) | payer OTHER, MEDICAID ==
[~2021-10-26 13:02] MED LIST changes: +DOCU-148 PO; -DOCU-153 PO; -FLUO20CA20 PO; +FLUO20CA22 PO; +LEVE500T56 PO; +NITR100C PO; -OMEP40CA45 PO; +OMEP40CA7 PO
== END 2021-10-26 14:29 | disposition left against medical advice (07) ==
LOC: ER 13:02
DX: I10 Essential (primary) hypertension (principal); Z53.21 Procedure and treatment not carried out due to patient leaving prior to being seen by health care provider

== ENCOUNTER 2021-10-27 13:10 | Emergency (ER) | payer OTHER, MEDICAID ==
[~2021-10-27] VITALS: Ht 157.5 cm; Wt 59.1 kg
--- NOTE | 2021-10-27 15:00 | PHYS DOC ---
Past Medical History Past Medical History: Bipolar, Depression, Hypertension, Seizure, Other Additional Past Medical Histor: TREMORS, EPILEPSY Past Surgical History: , Hip Replacement, Hysterectomy Smoking Status: Current Every Day Smoker Alcohol Use: Heavy Drug Use: Marijuana General Adult EDM: Chief Complaint: Palpitations HPI: HPI: Patient is a 61 year old female with history of seizures, bipolar, HTN who presents with palpitations. Started yesterday. States she feels like she cannot relax and like her heart is always racing. Denies shortness of breath or chest pain. No lower extremity edema. No cough, rhinorrhea, sore throat, fever/chills. Denies having similar symptoms. States she is on divalproex acid for her bipolar, Keppra for her seizures, and is on lisinopril for her hypertension. States her lisinopril was just increased from 10 mg to 20 mg. States she was asked by her PCP to present to the ED for work-up of her palpitations. Review of Systems: Review of Systems: Constitutional: Denies fever or chills. [] Eyes: Denies change in visual acuity. [] HENT: Denies nasal congestion or sore throat. [] Respiratory: Denies cough or shortness of breath. [] Cardiovascular: Reports palpitations. Denies chest pain. GI: Denies abdominal pain, nausea, vomiting, bloody stools or diarrhea. [] : Denies dysuria. [] Musculoskeletal: Denies back pain or joint pain. [] Integument: Denies rash. [] Neurologic: Denies headache, focal weakness or sensory changes. [] Endocrine: Denies polyuria or polydipsia. [] Lymphatic: Denies swollen glands. [] Psychiatric: Denies depression or anxiety. [] Heart Score: C/O Chest Pain: No Allergies: Allergies: Allergies Coded Allergies Type Severity Reaction Last Updated Verified ibuprofen Allergy Intermediate NAUSEA/VOMITING 06/15/14 Yes Physical Exam: PE: Constitutional: Well developed, well nourished HENT: Normocephalic, atraumatic Eyes: conjunctiva normal, no discharge. [] Neck: Normal range of motion, no tenderness, supple, no stridor. [] Cardiovascular:Heart rate regular rhythm, no murmur [] Lungs & Thorax: Bilateral breath sounds clear to auscultation [] Abdomen: Bowel sounds normal, soft, no tenderness, no masses, no pulsatile masses. [] Skin: Warm, dry, no erythema, no rash. [] Extremities: No tenderness, no edema. [] Neurologic: Alert and oriented X 3, normal motor function, normal sensory function, no focal deficits noted. [] Psychologic: Nervous mood, congruent affect EKG: EKG: Sinus rhythm. Rate 57. Normal axis. No Q waves, T wave inversion, or ST elevation/depression. QTc 443, KS 124, QRS 66 ms.[] Radiology/Procedures: Radiology/Procedures: [] Course & Med Decision Making: Course & Med Decision Making Pertinent Labs and Imaging studies reviewed. (See chart for details) Patient 61-year-old female with history of bipolar, seizures, HTN who presents with palpitations since yesterday. On arrival is afebrile, heart rate in the 80s, hypertensive 189 systolic, satting well on room air. No apparent distress on examination. Will check ekg and labs including tsh, cbc, cmp, magnesium. 1500 Telemetry has shown heart rate in the high 50s and low 60s. EKG is nonischemic, normal sinus rhythm with normal intervals. No evidence of ectopy or arrhythmia. Labs as above without acute abnormality. Vitals have remained stable, BP still elevated 173, but this is being addressed actively as an outpatient. No evidence of hypertensive end organ damage. Feel she will be safe for discharge with outpatient follow-up with her PCP [id number] Disclaimer: Camille Disclaimer: This electronic medical record was generated, in whole or in part, using a voice recognition dictation system. Departure Departure Impression: Primary Impression: Palpitations Disposition: HOME / SELF CARE / HOMELESS Condition: STABLE Referrals: UNKNOWN PCP NAME (PCP) Please schedule a follow-up appoint with your primary care doctor Additional Instructions: Your lab work including thyroid function, electrolytes, cell counts, kidney function were all normal. Your EKG was normal as well. Your vital signs did show some high blood pressure, that I would like you to continue following up with your primary care doctor about. They will likely continue to change your medications as needed. MAHAD MCDONALD MD Oct 27, 2021 15:00
[2021-10-27 16:13] LABS: BASO # 0.2 x10^3/uL (0.0-0.2); BASO % 2 % (0-3); EOS # 0.1 x10^3/uL (0.0-0.7); EOS % 1 % (0-3); HEMATOCRIT 33.1 % (36.0-47.0); HEMOGLOBIN 10.7 g/dL (12.0-15.5); LYMPH # 2.9 x10^3/uL (1.0-4.8); LYMPH % 31 % (24-48); MEAN CORPUSCULAR HEMOGLOBIN 26 pg (25-35); MEAN CORPUSCULAR HGB CONC 33 g/dL (31-37); MEAN CORPUSCULAR VOLUME 81 fL (79-100); MONO # 0.8 x10^3/uL (0.0-1.1); MONO % 8 % (0-9); NEUT # 5.3 x10^3/uL (1.8-7.7); NEUT % 57 % (31-73); PLATELET COUNT 316 x10^3/uL (140-400); RED BLOOD COUNT 4.07 x10^6/uL (3.50-5.40); RED CELL DISTRIBUTION WIDTH 18.7 % (11.5-14.5); WHITE BLOOD COUNT 9.2 x10^3/uL (4.0-11.0)
[2021-10-27 16:24] LABS: CALCIUM 8.5 mg/dL (8.5-10.1); CREATININE 0.7 mg/dL (0.6-1.0); GFR 84.8; POTASSIUM 3.6 mmol/L (3.5-5.1)
[2021-10-27 16:29] LABS: ALBUMIN 3.8 g/dL (3.4-5.0); ALBUMIN/GLOBULIN RATIO 1.1 (1.0-1.7); MAGNESIUM 1.9 mg/dL (1.8-2.4); TOTAL BILIRUBIN 0.2 mg/dL (0.2-1.0); TOTAL PROTEIN 7.4 g/dL (6.4-8.2)
[2021-10-27 16:53] VITALS: BP 159/83
--- NOTE | 2021-10-28 04:21 | EKG ---
[facility] [address] [place] [id number] Test Date: 2021-10-27 Test Time: 15:09:21 Pat Name: KATE MONTES Department: Room: Gender: F Informatics Scientist: : [id number] Requested By: MAHAD MCDONALD Order Number: [id number] Reading MD: Shaw Michelle MD Measurements Intervals [place] Rate: 57 P: 32 IN: 124 QRS: 35 QRSD: 66 T: 21 QT: 452 QTc: 443 Interpretive Statements SINUS RHYTHM Electronically Signed On 10-29-2021 20:45:43 CLAIMS VICE PRESIDENT by Shaw Michelle MD
== END 2021-10-27 17:45 | disposition home or self-care (01) ==
LOC: ER 13:10
DX: R00.2 Palpitations (principal); F31.9 Bipolar disorder, unspecified; I10 Essential (primary) hypertension; G40.909 Epilepsy, unspecified, not intractable, without status epilepticus; F17.200 Nicotine dependence, unspecified, uncomplicated; F10.20 Alcohol dependence, uncomplicated; Y90.9 Presence of alcohol in blood, level not specified; Z88.8 Allergy status to other drugs, medicaments and biological substances
CPT/HCPCS: 36415; 80053; 83735; 84443; 85025; 93005; 99285-25